=== PATIENT | female | born 1960 | race Caucasian/White ===

== ENCOUNTER 2016-04-14 15:14 | Inpatient (IN) | payer MEDICARE ==
[~2016-04-14] VITALS: Ht 157.5 cm; Wt 75.7 kg
--- NOTE | ~2016-04-14 | HEMODYNAMI ---
PATIENT:ELISABET BRIGHT MEDICAL RECORD: [id number] : 58 LOCATION:[facility] D.2129 ADMISSION DATE: 04/14/16 Generatedon:04/15/201611:43 Patient name: ELISABET BRIGHT Patient #: [id number] SSN: : Date of study: 04/15/2016 Page: Of Hemodynamic Procedure Report Patient Data Patient Demographics Procedure consent was obtained First Name: ELISABET Gender: Female Last Name: KAILA : 1960 [facility] Initial: CAMILLA Age: 55 year(s) Patient #: [id number] Race: Additional ID: [id number] Contact details Address: [address] [place] [address] State: [place] City: [place] Zip code: [address] Past Medical History Allergies Allergen Reaction Date Comments Reported Codeine 07/20/2014 Eggs 07/20/2014 Erythromycin 07/20/2014 Tetracycline 07/20/2014 Other allergy 07/20/2014 TYLENOL, DOXYCYLINE, HYDROCODONE, KEFLEX CJ inhibitors 04/15/2016 Codeine 04/15/2016 Admission Admission Data Admission Date: 04/14/2016 Admission Time: 22:34 Room #: [facility] Insurance Payor: Medicare, Medicaid Height (in.): 62 BSA: 1.75 (m2) Height (cm.): 157.48 BMI: 29.84 (kg/m2) Weight (lbs.): 163.14 Weight (kg.): 74 Medications upon Admission Medications Dosage Times Administered Last Remarks per Delivery Day Date and Time Clopidogrel Yes 04/15/2016 0:00 Lab Results Lab Result Date: 04/15/2016 Lab Result Time: 0:00 Biochemistry Name Units Result Min Max Creatinine mg/dl 1.5 --(----)-* 0.6 1.3 CBC Name Units Result Min Max Hemoglobin g/dl 11.1 *-(----)-- 13.5 17.5 Procedure Procedure Types Cath Procedure Diagnostic Procedure LHC LHC w/Coronaries FFR/IVUS Intra-Coronary IVUS Initial Miscellaneous Procedures Moderate Sedation up to 15 minutes Procedure Description Procedure Date Procedure Date: 04/15/2016 Procedure Start Time: 11:29 Procedure End Time: 11:41 Procedure Staff Name Function Star Trevizo MD Performing Physician Michelle Juarez RT Scrub Radha Grove RN Nurse Marito Mckenzie RT Music Professor Aldo Hope RT Monitor Procedure Data Cath Procedure Fluoroscopy Diagnostic fluoroscopy Total fluoroscopy Time: 1.9 time: 1.9 min min Diagnostic fluoroscopy Total fluoroscopy dose: 354 dose: 354 mGy mGy Contrast Material Contrast Material Type Amount (ml) Isovue 300 70 Entry Location Entry Primary Successful Side Size Upsize Upsize Entry Closure Succes sful Closure Location (Fr) 1 (Fr) 2 (Fr) Remarks Device Remarks Femoral Right 5 Fr 6 Fr Vascade artery Short Closure System Estimated blood loss: 5 ml Diagnostic catheters Device Type Used For End Catheter Placement Cordis 5Fr Pigtail Procedure Catheter (MP) Cordis 5Fr JL 4.0 Procedure Catheter (MP) Cordis 5Fr 3DRC Catheter Procedure (MP) Procedure Complications No complications Procedure Medications Medication Administration Route Dosage Oxygen NC 2 l/min Lidocaine 2% added to field 20 Heparin Flush Bag added to field 2 bags (1000units/500ml NS) 0.9% NaCl I.V. 100 ml/hr Fentanyl I.V. 50 mcg Versed I.V. 1 mg Fentanyl I.V. 50 mcg Versed I.V. 1 mg Fentanyl I.V. 50 mcg Fentanyl I.V. 50 mcg Hemodynamics Rest BSA: 1.75 (m2) HGB: 11.1 (g/dl) O2 Consumption: Estimated: 170.08 (ml/min) O2 Co nsumption indexed: Estimated:97.19 (ml/min/m) Heart Rate: 73 (bpm) Snapshots Pre Cath Intra NCS Post Cath Vital Signs Time Heart Resp SPO2 etCO2 IP5pxfu NIBP Rhythm Pain Sedation Rate (ipm) (%) (mmHg) (mmHg) (mmHg) Status Level (bpm) 11:16:27 74 17 100 0 0 No Cuff NSR 0 (11) 10(A) , No pain 11:20:26 73 18 98 0 0 No Cuff NSR 0 (11) 10(A) , No pain 11:24:08 77 23 97 0 0 113/59(76) NSR 0 (11) 10(A) , No pain 11:28:18 71 10 96 0 0 104/56(76) NSR 0 (11) 10(A) , No pain 11:32:27 71 13 94 0 0 105/54(81) NSR 0 (11) 9(A) , No pain 11:36:38 74 8 94 0 0 105/58(76) NSR 0 (11) 9(A) , No pain 11:40:47 80 10 93 0 0 109/58(86) NSR 0 (11) 9(A) , No pain 11:42:32 77 16 98 0 0 121/60(97) NSR 0 (11) 9(A) , No pain Medications Time Medication Route Dose Verified Delivered Reason Notes Effec tiveness by by 11:23:03 Oxygen NC 2 Star Buffie used for l/min Joseline Grove RN procedure 11:23:18 Lidocaine 2% added 20ml Star Buffie used for to vial Joseline Grove RN procedure field 11:23:27 Heparin Flush added 2 Star Buffie used for Bag to bags Joseline Grove RN procedure (1000units/500ml field NS) 11:23:37 0.9% NaCl I.V. 100 Star Buffie Per ml/hr Joseline Grove RN physician 11:27:10 Fentanyl I.V. 50 Star Buffie for mcg Joseline Grove RN sedation 11:27:17 Versed I.V. 1 mg Star Buffie for Joseline Grove RN sedation 11:29:12 Fentanyl I.V. 50 Star Buffie for mcg Joseline Grove RN sedation 11:29:16 Versed I.V. 1 mg Star Buffie for Joseline Grove RN sedation 11:31:35 Fentanyl I.V. 50 Star Buffie for mcg Joseline Grove RN sedation 11:35:11 Fentanyl I.V. 50 Star Buffie for mcg Joseline Grove RN sedation Procedure Log Time Note 10:50:33 Marito Mckenzie RT(R) sent for patient. Start room use. 11:04:43 Time tracking: Regular hours 11:04:47 Plan of Care:Hemodynamics will remain stable., Cardiac rhythm will remain stable., Comfort level will be maintained., Respiratory function will remain adequate., Patient/ family verbilizes understanding of procedure., Procedure tolerated without complication., Recovers from procedure without complications.. 11:04:53 Patient received from PCU to CCL 1 Alert and oriented. Tansferred to table in Supine position. 11:04:55 Warm blankets applied, and armida hugger turned on for patient comfort. 11:04:55 Correct patient and procedure confirmed by team. 11:04:56 Signed procedure consent form obtained from patient. 11:04:57 ECG and BP/O2 sat monitors applied to patient. 11:04:58 Full Disclosure recording started 11:15:36 Vital chart was started 11:15:40 Rhythm: sinus rhythm 11:16:25 H&P Date Dictated: 04/15/2016 Within 30 days and on chart.. 11:16:27 Pre-procedure instructions explained to patient. 11:16:27 Pre-op teaching completed and patient verbalized understanding. 11:16:29 Family in patients room. 11:16:30 Patient NPO since Midnight. 11:16:52 Patient allergic to CJ inhibitors 11:17:27 Patient allergic to Codeine 11:17:32 Is the patient allergic to Iodine/contrast media? No. 11:17:35 Is the patient allergic to Iodine/contrast media? No. 11:17:39 Is patient on blood thinner?Yes 11:17:41 ACC The patient was administered the following blood thiners within the last 24 hours: ACCPlavix 11:17:46 Patient diabetic? Yes. 11:18:41 Previous problem with sedation/anesthesia? No ? 11:18:43 Snore? Yes 11:18:45 Sleep apnea? Yes 11:18:47 Deviated septum? No 11:18:55 Opens mouth fully? Yes 11:18:56 Sticks out tongue? Yes 11:19:12 Airway obstruction? Yes COPD 11:19:16 Dentures? No ? 11:19:19 Pre procedure: right dorsailis pedis pulse 2+ Normal; easily identifiable; not easily obliterated 11:19:26 Patient pain scale 6/10 Chest. 11:19:33 IV patent on arrival in right forearm with 0.9% NaCl at KVO. 11:19:36 Lab results completed and on chart. 11:19:55 Lab Result : Creatinine 1.5 mg/dl 11:19:55 Lab Result : Hemoglobin 11.1 g/dl 11:20:00 Right groin area was prepped with chlora-prep and draped in sterile fashion 11:20: Alarms reviewed by R. N. 11:20: Sharps counted by scrub and verified by R.N. 11:20:04 Use device set Femoral Dx 11:20:05 Acist Syringe opened to sterile field. 11:20:06 Bag Decanter opened to sterile field. 11:20:06 Cardinal Cath Pack opened to sterile field. 11:20:07 Terumo 5Fr Marty Sheath opened to sterile field. 11:20:07 St Dwayne 260cm J .035 wire opened to sterile field. 11:20:08 Acist Hand Control opened to sterile field. 11:20:09 Acist Manifold opened to sterile field. 11:20:09 Cordis Infinity 5Fr Multipack catheter opened to sterile field. 11:20:10 Tegaderm 4 x 4 opened to sterile field. 11:20:29 If diabetic: On Metformin? No 11:23:03 Oxygen 2 l/min NC was given by Radha Grove RN; used for procedure; 11:23:18 Lidocaine 2% 20ml vial added to field was given by Radha Grove RN; used for procedure; 11:23:27 Heparin Flush Bag (1000units/500ml NS) 2 bags added to field was given by Radha Grove RN; used for procedure; 11:23:37 0.9% NaCl 100 ml/hr I.V. was given by Radha Grove RN; Per physician; 11:24:11 Patient Weight : 163.14 lbs 11:24:17 Patient Height : 62 inches 11:24:26 Insurance Payor : Medicare, Medicaid 11:25:24 ACC Patient presents with Unstable Angina CCS Anginal Class 3--Marked limitation of physical activity, angina occurs with ordinary activity.. 11::41 ACCPatient has been prescribed/administered the following anti-anginal medication within the last 2 weeks: Beta Adonis, Calcium Channel Blockers, Long-Acting Nitrates 11::43 Physician arrived 11::43 --------ALL STOP TIME OUT------ 11::44 Final Timeout: patient, procedure, and site verified with staff and physician. All members of the team are in agreement. 11:26:45 Right groin site verified by team. 11:26:48 Physical assessment completed. ASA score P 2 - A patient with mild systemic disease as per Star Trevizo MD. 11:26:51 Sedation plan: IV Moderate Sedation Versed, Fentanyl 11:27:10 Fentanyl 50 mcg I.V. was given by Radha Grove RN; for sedation; 11:27:13 Baseline sample Acquired. 11::17 Versed 1 mg I.V. was given by Radha Grove RN; for sedation; 11::22 Zero performed for pressure channel P1 11:29:12 Fentanyl 50 mcg I.V. was given by Radha Grove RN; for sedation; 11::16 Versed 1 mg I.V. was given by Radha Grove RN; for sedation; 11:29:38 Procedure started. 11:29:41 Local anesthetic to right femoral artery with Lidocaine 2% by Star Trevizo MD.INITIAL ACCESS ONLY 11:29:47 A 5 Fr sheath was inserted into the Right Femoral artery 11:30:46 A Cordis 5Fr Pigtail Catheter (MP) was advanced over the wire and used for Procedure. 11:31:35 Fentanyl 50 mcg I.V. was given by Radha Grove RN; for sedation; 11:31:55 LV angiography performed. 11:31:56 LV gram done using STEIN 11:32:01 EF : 60 % 11:32:06 Injector settings: Ml/sec: 10, Volume: 20, 11:32:29 Catheter exchanged over wire. 11:32:34 A Cordis 5Fr JL 4.0 Catheter (MP) was advanced over the wire and used for Procedure. 11:32:45 LCA angiography performed. 11:34:50 Catheter removed. 11:34:56 A Cordis 5Fr 3DRC Catheter (MP) was advanced over the wire and used for Procedure. 11:35:00 RCA angiography performed. 11:35:02 Catheter removed. 11:35:10 Terumo 6Fr Marty Sheath opened to sterile field. 11:35:10 [place] Eagleye IVUS Catheter opened to sterile field. 11:35:11 Fentanyl 50 mcg I.V. was given by Radha Grove RN; for sedation; 11:35:11 Merit BasixCompak Inflation Kit opened to sterile field. 11:35:18 [place] Sci Choice PT Extra Support J 300cm .014 gu opened to sterile field. 11:35:28 Sheath upsized to a 6 Fr Short. 11:35:41 Cordis 6FR XBLAD 3.5 guide catheter opened to sterile field. 11:35:48 6 Fr xblad 3.5 guide catheter was inserted over the wire 11:35:53 pt es wire advanced. 11:35:55 Wire advanced across lesion. 11:36:35 IVUS catheter advanced over wire. 11:36:59 IVUS pass to Circ lesion performed. 11:37:45 IVUS catheter removed over wire. 11:37:49 Wire removed. 11:38:14 Guide catheter removed. 11:38:26 Vascade 6/7 Fr Closure Device opened to sterile field. 11:39:45 Sheath removed intact; hemostasis achieved with Vascade Closure System to the Right Femoral artery. 11:39:47 Procedure ended.(Physican Out) 11:39:55 Fluoroscopy time 01.90 minutes. 11:39:59 Fluoroscopy dose: 354 mGy 11:39:59 Flurop Dose total: 354 11:40:03 Contrast amount:Isovue 300 70ml. 11:40:04 Sharps counted by scrub and verified by R.N. 11:40:06 Insertion/operative site no bleeding no hematoma. 11:40:08 Post-op/insertion site Right Femoral artery dressed using a 4 x 4 and Tegaderm. 11:40:12 Post right femoral artery:stable, soft, clean and dry 11:40:13 Post Procedure Pulses reassessed and unchanged 11:40:15 Post-procedure physical assessment completed. ASA score P 2 - A patient with mild systemic disease as per Star Trevizo MD. 11:40:18 Post procedure rhythm: unchanged. 11:40:20 Estimated blood loss: 5 ml 11:40:22 Post procedure instruction explained to patient.Patient verbalizes understanding. 11:40:22 Patient needs reinforcement of post procedure teaching. 11:40:50 Procedure type changed to Cath procedure, Diagnostic procedure, LHC, C w/Coronaries, FFR/IVUS, Intra-Coronary IVUS Initial, Miscellaneous Procedures, Moderate Sedation up to 15 minutes 11:41:19 Procedure and supply charges have been captured, reviewed, submitted and are correct. 11:41:19 Procedure and supply charges have been captured, reviewed, submitted and are correct. 11:41:21 Procedure Complication : No complications 11:41:23 Vital chart was stopped 11:41:26 See physician's report for complete and final results. 11:41:29 Report given to PCU. 11:41:32 Patient transfered to PCU with Stretcher. 11:41:34 Procedure ended. 11:41:34 Full Disclosure recording stopped 11:43:26 ACC-PCI Only Patient was given prescriptions, or instructed by Star Trevizo MD to start/continue the following medications upon discharge: Plavix 11:43:28 End room use (Document Last) Device Usage Item Name Manufacture Quantity Catalog Number Hospital Part Current Minim al Lot# / Charge Number Stock Stock Serial# Code Acist Acist 1 [id number] 328251 966555 448954 20 Syringe Medical Systems Inc Bag Microtek 1 2002S 986564 54840 978364 5 Decanter Medical Inc. Cardinal Cardinal 1 [id number] 683834 80360 282618 5 Cath Pack Health Terumo 5Fr Terumo 1 [id number] 718947 570466 911182 [address] St Dwayne 1 321431 374654 331186 428837 30 260cm J .035 wire Acist Hand Acist 1 93886 844935 635404 997668 5 Control Medical Systems Inc Acist Acist 1 57274 186157 353987 440603 5 Manifold Medical Systems Inc Cordis Cardinal 1 [id number] 463241 81941 497893 30 Infinity Health 5Fr Multipack catheter Tegaderm 4 3M 1 1626W 323742 423550 717843 5 x 4 Cordis 5Fr Cardinal 1 904425 5 Pigtail Health Catheter (MP) Cordis 5Fr Cardinal 1 387687 5 JL 4.0 Health Catheter (MP) Cordis 5Fr Cardinal 1 779615 5 3DRC Health Catheter (MP) Terumo 6Fr Terumo 1 JSP265 665839 077908 528286 40 Marty Sheath [place] 1 38210P 171173 198025 296716 8 [employer] [place] [employer] [place] Eagley[place] IVUS Catheter Merit Merit 1 PW1046 286898 580075 793418 15 Maxcyte Medical Inflation Kit Salem Sci Salem 1 [id number] 152192 165537 173399 5 Choice PT Scientific Extra Support J 300cm .014 gu Cordis 6FR Cardinal 1 [id number] 704221 596199 174363 10 XBLAD 3.5 Health guide catheter Vascade 08/12 Cardiva 1 [id number] 298982 491803 804899 5 Fr Closure Medical, Device Inc. Signature Audit [place] Stage Time Signature Unsigned Intra-Procedure 04/15/2016 Aldo Hope 11:43:40 AM RT(R) Signatures Monitor : Aldo Hope RT Signature : Date : Time : [id number] [place] [address]
[~2016-04-14 15:14] MED LIST: ADVAIR 250/501 DISK INH; ALBUTEROL2.5 MG/0.5 UPD; AMOXICILLIN500 M1 PO; ATIVAN1 MG PO; BACLOFEN20 M1 PO; BAYER CHEWABLE81 MG PO; COREG25 MG; COREG25 MG PO; EFFIENT10 MG PO; GABAPENTIN100 MG PO; GLIPIZIDE10 MG PO; GLUCOPHAGE1000 MG PO; GLUCOPHAGE500 MG PO; HUMULIN R100 U/ML SC; HYDROCHLOROTH12.5 M1 PO; IMDUR60 MG PO; IPRAT-ALBUT 0.5-3 ML UPD; JANUVIA100 MG PO; K-DUR20 MEQ PO; KLOR-CON M2020 MEQ PO; LANTUS INSULIN10 ML SC; LANTUS SOL100 UNIT/1; LASIX40 MG PO; LIPITOR40 MG PO; NEURONTIN 300300 MG PO; NORVASC5 MG PO; PHENERGAN25 M1 PO; PLAVIX75 MG PO; PROTONIX40 MG PO; PROVENTIL HFA6.7 GM INH; PROVENTIL/2.5 MG/3 M; TRAZODONE HCL150 MG PO; VENTOLIN HFA18 GM
[2016-04-14 16:33] LABS: BASOPHILS 0.3 % (0.0-2.0); EOSINOPHILS 2.6 % (0-7); HEMATOCRIT 34.9 % (36.0-48.0); HEMOGLOBIN 11.3 g/dL (12-16); IMMATURE GRANULOCYTES 0.3 % (0-5); LYMPHOCYTES 23.6 % (15-50); MCH 29.7 pg (26.0-34.0); MCHC 32.4 g/dL (31.0-37.0); MCV 91.8 fL (80.0-100.0); MEAN PLATELET VOLUME 10.2 fL (7.4-10.4); MONOCYTES 8.6 % (2-11); NEUTROPHILS 64.6 % (40-80); PLATELET COUNT 262 10x3/uL (130-400); RDW 13.1 % (11.5-14.5); WBC 12.2 10x3/uL (4.8-10.8)
[2016-04-14 17:26] LABS: ALBUMIN 4.3 g/dL (3.4-5.0); ALKALINE PHOSPHATASE 98 U/L (46-116); ALT (SGPT) 26 U/L (10-68); BILIRUBIN - TOTAL 0.19 mg/dL (0.2-1.3); CALC OSMOLALITY 294 mosm/kg (275-300); CALCIUM 9.2 mg/dL (8.5-10.1); CARBON DIOXIDE 29.7 mmol/L (21.0-32.0); CHLORIDE - SERUM 100 mmol/L (98-107); CREATININE - SERUM 2.2 mg/dL (0.6-1.3); GLUCOSE 236 mg/dL (74-106); POTASSIUM - SERUM 4.2 mmol/L (3.5-5.1); PROTEIN - SERUM 7.5 g/dL (6.4-8.2); SODIUM 140 mmol/L (136-145); UREA NITROGEN 36 mg/dL (7-18); eGFR NON AFRICAN AMERICAN 24 mL/min (90-120)
[2016-04-14 17:38] LABS: CKMB 0.6 U/L (0.0-3.6); CREATINE KINASE 73 UL (21-215); PRO BNP 42 pg/mL (0-125); TROPONIN-I < 0.017 ng/mL (0.000-0.060)
[2016-04-14 22:26] LABS: APPEARANCE CLEAR (CLEAR); BILIRUBIN NEGATIVE (NEGATIVE); COLOR YELLOW (YELLOW); GLUCOSE NEGATIVE (NEGATIVE); KETONE NEGATIVE (NEGATIVE); LEUKOCYTE ESTERASE NEGATIVE (NEGATIVE); NITRITE NEGATIVE (NEGATIVE); PROTEIN NEGATIVE (NEGATIVE); UROBILINOGEN NORMAL (NORMAL)
--- NOTE | 2016-04-15 00:22 | NUR ---
RECEIVED TO ROOM 2128 ALERT AND ORIENTED X3 55 Y/O FEMALE UNDER DR EDWIGE TRIANA CARE FOR CHEST PAIN VIA W/C FROM ER. ORIENTATION TO UNIT, ROOM , BED, TV,PHONE, C/L IN REACH. NPO PER ORDERS. TELEMETRY PLACED, SHOWING HR SR PER FACULTY RESEARCH ASSISTANT. UP AD KIMI W/O DIFF. CONTINUE TO MONITOR. WILL PLACE ON O2 VIA NC AT 2L PER ORDERS.
[2016-04-15 01:22] VITALS: BP 133/55
[2016-04-15 02:38] VITALS: BP 113/58; BMI 29.7
--- NOTE | 2016-04-15 03:42 | NUR ---
QUIET IN BED, RESP UNLAB, EYES CLOSED, HOB UP SR UP X2, C/L IN REACH.
[2016-04-15 06:27] VITALS: BP 110/38
--- NOTE | 2016-04-15 07:40 | NUR ---
ASSESSMENT DONE. PT A/O. SITTING UP IN BED WATCHING TV. C/O HIGH. ABD DISTENED AND TINDER AT BOTH LOWER QUADS. STATES SHE HAS HAD A BM THIS AM. PT NPO AND WAITNG FOR DR. LIRA TO EVALUATE. PT DENIES CP OR SOB. CALL LIGHT WITH IN REACH. WILL CONT. TO MONITOR.
[2016-04-15 08:00] VITALS: BP 109/39
--- NOTE | 2016-04-15 08:25 | NUR ---
IV PATENT. CALL LIGHT IN REACH. NO NEEDS VOICED. WILL MONITOR.
[2016-04-15 09:25] LABS: ANION GAP 10.1 mmol/L (8-16); CALCIUM 8.6 mg/dL (8.5-10.1); CARBON DIOXIDE 30.8 mmol/L (21.0-32.0); POTASSIUM - SERUM 3.9 mmol/L (3.5-5.1)
[2016-04-15 09:27] LABS: CREATININE - SERUM 1.5 mg/dL (0.6-1.3)
--- NOTE | 2016-04-15 09:29 | NUR ---
FAMILY IN ROOM. CONSENTS SIGNED FOR HEART CATH.
[2016-04-15 09:31] LABS: BASOPHILS 0.2 % (0.0-2.0); EOSINOPHILS 2.9 % (0-7); HEMATOCRIT 34.7 % (36.0-48.0); HEMOGLOBIN 11.1 g/dL (12-16); IMMATURE GRANULOCYTES 0.3 % (0-5); LYMPHOCYTES 20.2 % (15-50); MCH 29.3 pg (26.0-34.0); MCV 91.6 fL (80.0-100.0); MEAN PLATELET VOLUME 10.4 fL (7.4-10.4); MONOCYTES 6.8 % (2-11); NEUTROPHILS 69.6 % (40-80); PLATELET COUNT 244 10x3/uL (130-400); RBC 3.79 10x6/uL (4.00-5.40); RDW 13.2 % (11.5-14.5); WBC 10.9 10x3/uL (4.8-10.8)
--- NOTE | 2016-04-15 11:01 | NUR ---
PT TO FRONT DESK ASSOCIATE VIA BED. NO FAMILY PRESENT. PRE-OP MEDS GIVEN.
--- NOTE | 2016-04-15 12:03 | NUR ---
PT BACK FROM SURGICAL SCHEDULER. A/O. REQUEST WATER AND HER PHONE. DRESSING TO RIGHT GROIN CLEAN, DRY AND INTACT. NO S/S OF BLEEDING AND HEMATOMA. EDUCATED PT ON LAYING FLAT AND NOT BENDING LEG. CALL LIGHT PLACED WITH IN REACH. WILL CONT. TO MONITOR.
[2016-04-15 12:18] VITALS: Ht 157.5 cm; Wt 75.7 kg
--- NOTE | 2016-04-15 13:17 | NUR ---
PT SLEEPING. EASILY AWAKEN. DRESSING TO RT GROIN REMAINS CLEAN DRY AND INTACT. NO S/S OF BLEEDING OR HEMATOMA. PT C/O FLUSHING. TEMP IN ROOM TURNED DOWN. AND PT GIVEN A COLD WASH CLOTH. CALL LIGHT WITH IN REACH. WILL CONT. TO MONITOR.
--- NOTE | 2016-04-15 14:38 | NUR ---
ASSISTED PT TO RESTROOM. PT C/O DIZZINESS FROM MEDS GIVEN DURING ANGIOGRAM. DRESSING TO RIGHT GROIN INTACT. NO S/S OF BLEEDING OR HEMATOMA. PEDAL PULSE PRESENT. WILL CONT. TO MONITOR.
[2016-04-15 16:00] VITALS: BP 123/69
--- NOTE | 2016-04-15 16:01 | NUR ---
PT SITTING UP IN BED WATCHING TV. A/O. NO DISTRESS NOTED. DRESSING TO RIGHT GROIN INTACT. NO S/S OF BLEEDING OR HEMATOMA. CALL LIGHT WITH IN REACH. WILL CONT. TO MONITOR.
--- NOTE | 2016-04-15 16:06 | NUR ---
SCD'S ON ANNEMARIE LE
--- NOTE | 2016-04-15 16:16 | NUR ---
HAT TAKEN INTO PT'S ROOM TO MONITOR I&O'S AND SCD'S PLACED ON PT.
[2016-04-15 20:02] VITALS: BP 109/35
--- NOTE | 2016-04-15 21:03 | NUR ---
HS MEDS GIVEN, BS 122, NO COVERAGE PER S/S. ATIVAN GIVEN AT PT REQUEST TO ASSIST WITH SLEEP. NO OTHER NEEDS AT THIS TIME, BED LOW, CL IN REACH.
--- NOTE | 2016-04-16 01:05 | NUR ---
RESTING WITH EYES CLOSED, RESPERATIONS EVEN, NO S/S DISTRESS NOTED.
[2016-04-16 04:36] VITALS: BP 108/46
[2016-04-16 05:23] LABS: BASOPHILS 0.1 % (0.0-2.0); EOSINOPHILS 3.8 % (0-7); HEMATOCRIT 32.5 % (36.0-48.0); HEMOGLOBIN 10.2 g/dL (12-16); IMMATURE GRANULOCYTES 0.2 % (0-5); LYMPHOCYTES 24.9 % (15-50); MCH 29.3 pg (26.0-34.0); MCHC 31.4 g/dL (31.0-37.0); MCV 93.4 fL (80.0-100.0); MEAN PLATELET VOLUME 10.4 fL (7.4-10.4); MONOCYTES 10.7 % (2-11); NEUTROPHILS 60.3 % (40-80); PLATELET COUNT 230 10x3/uL (130-400); RBC 3.48 10x6/uL (4.00-5.40); RDW 13.2 % (11.5-14.5); WBC 8.2 10x3/uL (4.8-10.8)
[2016-04-16 05:34] LABS: CALCIUM 8.4 mg/dL (8.5-10.1); CARBON DIOXIDE 26.7 mmol/L (21.0-32.0); CREATININE - SERUM 1.4 mg/dL (0.6-1.3); POTASSIUM - SERUM 3.7 mmol/L (3.5-5.1)
--- NOTE | 2016-04-16 07:54 | NUR ---
ASSESSMENT DONE. PT LAYING IN BED WITH HOB ELEVATED. A/O TALKING ON THE PHONE. DRESSING TO RIGHT GROIN WNL. STATES SITE IS TENDER TO TOUCH. NO BLEEDING OR S/S OF HEMATOMA NOTED. PT STATES SHE ATTEMPTED TO HAVE A BM, BUT FELT PRESSURE AT THE CATH SITE AND WAS AFRAID SHE MIGHT START BLEEDING, AND REFRAINED FROM GOING. DISCUSSED USED OF STOOL SOFTNERS. LUNGS SOUNDS DIMINISHED. PT STATES SHE JUST STARTED COUGHING, BUT ISN'T COUGHING UP ANYTHING. PT NEEDS TO AMBULATE. CALL LIGHT WITH IN REACH. WILL CONT. TO MONITOR.
[2016-04-16 08:00] VITALS: BP 90/55
[2016-04-16 09:08] LABS: BILIRUBIN - DIRECT 0.07 mg/dL (0.00-0.30); BILIRUBIN - INDIRECT 0.22 mg/dL (0.00-1.00); BILIRUBIN - TOTAL 0.29 mg/dL (0.2-1.3); PROTEIN - SERUM 6.4 g/dL (6.4-8.2)
[2016-04-16 09:10] LABS: ALBUMIN 3.2 g/dL (3.4-5.0)
--- NOTE | 2016-04-16 10:24 | NUR ---
RESP UL ON . IVPATENT. CALL LIGHT IN REACH. WILL CONT. PLAN OF CARE.
--- NOTE | 2016-04-16 11:07 | NUR ---
Patient Name: ELISABET BRIGHT Admission Status: ER Accout number: [id number] Admission Date: 04-15-2016 : 1960 Admission Diagnosis: Attending: PERFECTO Current LOS: 1 Anticipated DC Date: Planned Disposition: Home Primary Insurance: MEDICARE A & B Discharge Planning Comments: * Is the patient Alert and Oriented? Yes 0 * How many steps to enter\exit or inside your home? 10-12 0 * PCP MICHELLE MACHADO 0 * Pharmacy [facility] IN [place] 0 * Preadmission Environment Home Alone 0 * ADLs Independent 0 * Equipment Bedside Commode Glucometer Nebulizer Other Oxygen Wheelchair 0 * Other Equipment BLOOD PRESSURE MONITOR OXYGEN AT NIGHT [facility] - MEDICAL EQUIPMENT PROVIDER 0 * List name and contact numbers for known caregivers / representatives who currently or will assist patient after discharge: SHLOMO CARVAJAL, ARIEL, 0 * Community resources currently utilized None 0 * Please name any agencies selected above. NONE 0 * Additional services required to return to the preadmission environment? No 0 * Can the patient safely return to the preadmission environment? Yes 0 * Has this patient been hospitalized within the prior 30 days at any hospital? No 0 CM MET WITH PT IN ROOM TO DISCUSS DISCHARGE PLANNING AND NEEDS. PT REPORTS LIVING AT HOME INDEPENDENTLY AND ALONE. PT REPORTS HAVING ALL NEEDED MEDICAL EQUIPMENT, RADHA IS HER PROVIDER; PT IS USING A BEDSIDE COMMODE A SHOWER CHAIR. PT HAS NO OUTSIDE SERVICES ASSISTING IN THE HOME. CM DISCUSSED AVAILABILITY OF HOME HEALTH, REHAB SERVICES AND MEDICAL EQUIPMENT. PT DENIES DISCHARGE NEEDS AT THIS TIME BUT WILL CONSIDER HOME HEALTH IF IT IS NEEDED; PT REPORTS HER SON WILL PICK HER UP FOR DISCHARGE HOME. PT PLANS TO DISCHARGE HOME ALONE, DENIES DISCHARGE NEEDS, WILL CONSIDER HOME HEALTH IF THERE IS A NEED. CM TO FOLLOW AND ASSIST IF NEEDED. Mortgage Closing Clerk: Alirio Olivia
--- NOTE | 2016-04-16 11:07 | NUR ---
PT SLEEPING. APPEARS COMFORTABLE. RESP EVEN AND UNLABORED. CALL LIGHT WITH IN REACH. WILL CONT. TO MONITOR.
[2016-04-16 12:00] VITALS: BP 130/71
--- NOTE | 2016-04-16 12:04 | NUR ---
Patient Name: ELISABET BRIGHT Encounter No: [id number] : 1960 Primary Insurance: MEDICARE A & B Anticipated DC Date: 04-16-2016 Planned Disposition: Home WITH HOME HEALTH External Planned Provider: [facility] DCP follow-up note: CM MET WITH PT IN ROOM AFTER RECEIVING DISCHARGE ORDER TO DISCUSS HOME HEALTH AND DISCHARGE NEEDS. PT HAS THOUGHT ABOUT IT AND WOULD LIKE HOME HEALTH NURSE TO ENSURE THAT SHE IS OK; PT REPORTS BEING FORGETFUL AT TIMES AND WOULD LIKE ASSISTANCE WITH MEDICATIONS AND DIET. PT CHOSE [facility] SHE SEE'S THEIR CARS AT HER APARTMENT COMPLEX ALL THE TIME. CHOICE SIGNED. PT DENIES FURTHER NEEDS, FAMILY TO PICK HER UP TODAY. CM CALLED [facility], , SPOKE TO DELFINA WHO TOOK REFERRAL INFORMATION FOR HOME HEALTH FOLLOW UP. CM FAXED REFERRAL TO [facility] AT [phone]. PT NOTIFIED, DENIES FURTHER NEEDS. Alirio Olivia, CASE MANAGEMENT
--- NOTE | 2016-04-16 12:29 | NUR ---
DISCHARGE INSTRUCTIONS GIVEN TO PT. UNDERSTANDING VERBALIZED. IV AND TELEMETRY REMOVED. PT TO D/C HOME THEN [facility] TO FOLLOW UP WITH PT. PT'S FAMILY HERE TO TAKE HOME VIA PRIVATE VEHICLE.
--- NOTE | 2016-04-16 12:53 | NUR ---
PT D/C HOME VIA PRIVATE VEHICLE WITH SON AND DAUGHTER. TAKEN OUT BY W/C
--- NOTE | 2016-04-16 13:59 | OP ---
PATIENT NAME: ELISABET BRIGHT MEDICAL RECORD: [id number] :[birth year] LOCATION:D.M2 D.2129 ADMISSION DATE:04/15/16 SURGEON: MORIAH LIRA MD DATE OF OPERATION: 04/15/2016 PROCEDURES: 1. Left heart catheterization. 2. Selective coronary angiography. 3. Left ventriculogram. 4. Intravascular ultrasound of left circumflex. PROCEDURE IN DETAIL: After informed consent was obtained and after a detailed explanation of the risks, benefits as well as alternative therapies, the patient elected to proceed with angiogram and heart catheterization. The right femoral area was prepped and draped in normal sterile fashion. Right femoral artery was cannulated via modified Seldinger technique with placement of 6-Greenlandic sheath. All catheters exchanged through this sheath. FINDINGS: The left ventriculogram was performed in standard 30-degree STEIN view, reveals good cardiac wall motion throughout all segments. Overall ejection fraction estimated 60%. SELECTIVE CORONARY ANGIOGRAPHY: 1. Left main showed no significant angiographic disease. 2. Left anterior descending has previously placed stents in the LAD and LAD diagonal is widely patent with no significant restenosis. No disease elsewise throughout the LAD or its branches. 3. Left circumflex has previously placed stent in the mid vessel. This was a questionable stenosis at the ostium. However, intravascular ultrasound revealed there is no significant disease. There, it is just an angulated segment. 4. Right coronary has moderate irregularities, but no flow-limiting stenosis. OVERALL IMPRESSION: No new coronary artery disease is present, wide patency of the previously placed stents. Continue medical management of the coronary artery disease and chronic stable angina. TRANSINT:[id number] Voice Confirmation ID: [id number] DOCUMENT ID: [id number] MORIAH LIRA MD at 1359 CC: [id number] DICTATION DATE: 04/15/16 1143 PRECISION DYER: 04/15/16 1203 DIS IN 04/16/16 [id number] [place] [address]
--- NOTE | 2016-04-16 13:59 | DS ---
PATIENT:ELISABET BRIGHT :[birth year] MEDICAL RECORD: [id number] DISCHARGE SUMMARY ADMISSION DATE: 04/15/16 DISCHARGE DATE: 04/16/16 DISCHARGE DIAGNOSES: 1. Angina. 2. Coronary artery disease. 3. Hypertension. 4. Hyperlipidemia. HOSPITAL COURSE: Mrs. Bright presents with anginal symptomatology, found to have no new coronary artery disease, no restenosis of the previously placed stents. She is discharged home with no change in her medications as she is already on a beta-johnny and Imdur and a calcium channel johnny. We will follow up with [facility] in 1 month. TRANSINT:[id number] Voice Confirmation ID: [id number] DOCUMENT ID: [id number] MORIAH LIRA MD at 1359 CC: [id number] DICTATION DATE: 04/15/16 1141 MUSIC INDUSTRY INTERNSHIP: 04/15/16 1258 DIS IN 04/16/16 [address] [place] [address]
--- NOTE | 2016-04-16 13:59 | CN ---
PATIENT NAME:ELISABET BRIGHT MEDICAL RECORD: [id number] : 58 LOCATION:D.M2 D.2129 ADMIT DATE: 04/15/16 ACCOUNT: [id number] CONSULTING PHYSICIAN: MORIAH LIRA MD REFERRING PHYSICIAN: MICHELLE TRIANA MD DATE OF CONSULTATION: 04/15/2016 Cardiology Consultation REFERRING PHYSICIAN: Michelle Triana MD. REASON FOR CONSULTATION: Angina. HISTORY OF PRESENT ILLNESS: This is a 55-year-old female well known to our practice with noted coronary artery disease. Her last percutaneous intervention was back in 2013 when she underwent stenting to her LAD and circ. She has had numerous left heart cath since that time, last being in September of 2015, which showed widely patent coronary vessels. Her other comorbid conditions include diabetes mellitus type 2, insulin-dependent, CVA, hypotension, hyperlipidemia, some renal insufficiency and some cardiomyopathy with a documented EF of 40% to 45%. The patient was seen and evaluated in the cardiovascular clinic on yesterday and advised to go to the Emergency Department due to her shortness of breath and what appeared to be a large volume ascites. However, the patient's CT scan just showed hepatomegaly with fatty infiltrate of the liver. The patient's 12-lead EKG shows normal sinus rhythm, rate of 68 with a nonspecific inferior ventricular block and a T-wave abnormality consistent with an inferolateral ischemia. Her serial troponins are negative today. Due to worsening symptomatology, we will proceed with a diagnostic heart catheterization. REVIEW OF SYSTEMS: As per HPI. ALLERGIES: Numerous. See MAR. MEDICATIONS: 1. ProAir inhaler. 2. Plavix 75 daily. 3. Lipitor 40 q.h.s. 4. Carvedilol 25 mg b.i.d. 5. Isosorbide 60 mg b.i.d. 6. Amlodipine 5 mg daily. 7. Aspirin 81 mg daily. 8. Gabapentin b.i.d. 9. Furosemide 40 daily. 10. Potassium 20 b.i.d. 11. Protonix 40 daily. 12. A 90 units of Lantus subQ q.a.m. 13. Regular insulin sliding scale. 14. Januvia 100 mg daily. PHYSICAL EXAMINATION: GENERAL SURVEY: Reveals a well-developed, well-nourished female, who has normal vital signs. She does complain of chest pain, graded at a 6/10 on the pain scale. HEENT: Head is normocephalic. Pupils are equal and reactive to light and CONSULT REPORT [id number] KAILA,ELISABET SAMPSON accommodation. Extraocular muscles are intact. The mucous membranes are pink and moist. NECK: Supple. Trachea is midline. There is no JVD or carotid bruits. CARDIOVASCULAR: Reveals a regular rate and rhythm without murmur, gallop, or rub. LUNGS: Clear and diminished bilaterally. ABDOMEN: Distended, soft, nontender. Bowel sounds are positive. EXTREMITIES: She has no clubbing, cyanosis or edema. NEUROLOGIC: Cranial nerves II-XII are grossly intact. LABORATORY DATA: Have been reviewed. ASSESSMENT AND PLAN: 1. Angina in a patient with known coronary artery disease. We will proceed with a left heart catheterization. 2. Renal insufficiency. The patient's baseline renal function is around 1.5-1.8. She was at 2.2 this morning. We will give aggressive IV fluids prior to the left heart catheterization. 3. Diabetes mellitus, insulin-dependent. Continue her insulin sliding scale. 4. Hypotension. 5. Cardiomyopathy. She has no evidence of fluid volume overload. 6. Chronic obstructive pulmonary disease. RECOMMENDATIONS: In light of the patient's acute coronary syndrome, we will proceed with a diagnostic angiography to evaluate for in-stent restenosis. Further recommendations to follow. TRANSINT:[id number] Voice Confirmation ID: [id number] DOCUMENT ID: [id number] Dictated By: MADYSON SOTELO I have interviewed/examined the above patient and agree with these documented findings. MORIAH LIRA MD at 1359 at 0948 CC: [id number] DICTATION DATE: 04/15/16 0858 DRY PAN FEEDER: 04/15/16 1011 DIS IN 04/16/16 [id number] [place] [address]
== END 2016-04-16 12:45 | disposition home health service (06) | DRG 287 ==
LOC: D.ER 15:14 → D.M2 22:34 → OBSVTIME 22:34 → D.M2 22:34
PROVIDERS: Emergency Medicine; Internal Medicine Interventional Cardiology; ADMIT Emergency Medicine
PROC: B2151ZZ Fluoroscopy of Left Heart using Low Osmolar Contrast (ICD-10-PCS; 2016-04-15)
PROC: 4A023N7 Measurement of Cardiac Sampling and Pressure, Left Heart, Percutaneous Approach (ICD-10-PCS; 2016-04-15)
PROC: B240ZZ3 Ultrasonography of Single Coronary Artery, Intravascular (ICD-10-PCS; 2016-04-15)
PROC: B2111ZZ Fluoroscopy of Multiple Coronary Arteries using Low Osmolar Contrast (ICD-10-PCS; principal; 2016-04-15 10:30)
DX: I25.119 Atherosclerotic heart disease of native coronary artery with unspecified angina pectoris (principal); N17.9 Acute kidney failure, unspecified; I50.22 Chronic systolic (congestive) heart failure; E78.5 Hyperlipidemia, unspecified; E11.9 Type 2 diabetes mellitus without complications; Z79.4 Long term (current) use of insulin; I95.9 Hypotension, unspecified; I42.9 Cardiomyopathy, unspecified; J44.9 Chronic obstructive pulmonary disease, unspecified; R16.0 Hepatomegaly, not elsewhere classified; I11.0 Hypertensive heart disease with heart failure; D64.9 Anemia, unspecified; I73.9 Peripheral vascular disease, unspecified; Z95.5 Presence of coronary angioplasty implant and graft; Z86.73 Personal history of transient ischemic attack (TIA), and cerebral infarction without residual deficits; Z87.891 Personal history of nicotine dependence

== ENCOUNTER 2016-12-18 09:13 | Outpatient (CLI) | payer MEDICARE ==
--- NOTE | ~2016-12-18 | HEMODYNAMI ---
PATIENT:ELISABET BRIGHT MEDICAL RECORD: [id number] : 58 LOCATION:D.CAT ADMISSION DATE: 12/18/16 Generatedon:12/18/201615:06 Patient name: ELISABET BRIGHT Patient #: [id number] SSN: : Date of study: 12/18/2016 Page: Of Hemodynamic Procedure Report Patient Data Patient Demographics Procedure consent was obtained First Name: ELISABET Gender: Female Last Name: KAILA : 1960 [facility] Initial: CAMILLA Age: 56 year(s) Patient #: [id number] Race: Additional ID: [id number] Contact details Address: [address] [place] [address] State: [place] City: [place] Zip code: [address] Past Medical History Allergies Allergen Reaction Date Comments Reported Codeine 07/20/2014 Eggs 07/20/2014 Erythromycin 07/20/2014 Tetracycline 07/20/2014 Other allergy 07/20/2014 TYLENOL, DOXYCYLINE, HYDROCODONE, KEFLEX CJ inhibitors 04/15/2016 Codeine 04/15/2016 Admission Admission Data Admission Date: 12/18/2016 Admission Time: 9:13 Procedure Procedure Types Cath Procedure Diagnostic Procedure LHC LHC w/Coronaries Miscellaneous Procedures Moderate Sedation up to 15 minutes Procedure Description Procedure Date Procedure Date: 12/18/2016 Procedure Start Time: 14:55 Procedure End Time: 15:03 Procedure Staff Name Function Star Trevizo MD Performing Physician Michelle Juarez RT Scrub Sandra Looney RT Monitor Michele Rivera RN Nurse Procedure Data Cath Procedure Fluoroscopy Diagnostic fluoroscopy Total fluoroscopy Time: 0.7 time: 0.7 min min Diagnostic fluoroscopy Total fluoroscopy dose: 117 dose: 117 mGy mGy Contrast Material Contrast Material Type Amount (ml) Isovue 300 58 Entry Location Entry Primary Successful Side Size Upsize Upsize Entry Closure Succes sful Closure Location (Fr) 1 (Fr) 2 (Fr) Remarks Device Remarks Femoral Right 5 Fr Exoseal artery Estimated blood loss: 10 ml Diagnostic catheters Device Type Used For End Catheter Placement Cordis 5Fr Pigtail Procedure Catheter (MP) Cordis 5Fr JL 4.0 Procedure Catheter (MP) Cordis 5Fr 3DRC Catheter Procedure (MP) Procedure Complications No complications Procedure Medications Medication Administration Route Dosage Oxygen NC 2 l/min Heparin Flush Bag added to field 2 bags (1000units/500ml NS) 0.9% NaCl I.V. 100 ml/hr Fentanyl I.V. 50 mcg Versed I.V. 1 mg Fentanyl I.V. 50 mcg Versed I.V. 1 mg Fentanyl I.V. 50 mcg Versed I.V. 1 mg Hemodynamics Rest Heart Rate: 88 (bpm) Snapshots Pre Cath Intra NCS Post Cath Vital Signs Time Heart Resp SPO2 etCO2 NIBP Rhythm Pain Sedation Rate (ipm) (%) (mmHg) (mmHg) Status Level (bpm) 14:24:20 98 18 95 0 121/77(94) NSR 0 (11) 10(A) , No pain 14:28:32 99 17 95 0 114/78(94) NSR 0 (11) 10(A) , No pain 14:32:40 100 17 88 0 108/69(87) NSR 0 (11) 10(A) , No pain 14:36:46 100 17 96 0 99/64(84) NSR 0 (11) 10(A) , No pain 14:40:52 97 17 95 0 95/59(76) NSR 0 (11) 10(A) , No pain 14:44:59 98 16 97 0 95/51(77) NSR 0 (11) 10(A) , No pain 14:49:11 100 18 98 0 97/47(67) NSR 0 (11) 10(A) , No pain 14:53:23 98 18 97 0 88/47(70) NSR 0 (11) 10(A) , No pain 14:57:33 98 19 94 0 81/46(62) NSR 0 (11) 10(A) , No pain 15:01:41 101 16 96 0 81/49(76) NSR 0 (11) 9(A) , No pain 15:04:51 97 17 94 0 77/48(71) NSR 0 (11) 9(A) , No pain Medications Time Medication Route Dose Verified Delivered Reason Notes Effec tiveness by by 14:56:19 Oxygen NC 2 Star Maloney Per l/min Joseline Rivera RN physician 14:56:28 Heparin Flush added 2 Star Michele used for Bag to bags Joseline Rivera rim roller setter (1000units/500ml field NS) 14:56:38 0.9% NaCl I.V. 100 Star Maloney Per ml/hr Joseline Rivera RN physician 14:56:48 Fentanyl I.V. 50 Star Michele for mcg Joseline Rivera RN sedation 14:56:55 Versed I.V. 1 mg Star Michele for Joseline Rivera RN sedation 14:58:48 Fentanyl I.V. 50 Star Michele for mcg Joseline Rivera RN sedation 14:58:51 Versed I.V. 1 mg Star Michele for Joseline Rivera RN sedation 14:59:31 Fentanyl I.V. 50 Star Michele for aida Rivera RN sedation 14:59:34 Versed I.V. 1 mg Star Maloney for Joseline Rivera RN sedation Procedure Log Time Note 14:05:30 Michelle Juarez RT(R) sent for patient. Start room use. 14:10:28 Diagnostic Cath status Elective 14:10:31 Time tracking: Regular hours 14:10:38 Plan of Care:Hemodynamics will remain stable., Cardiac rhythm will remain stable., Comfort level will be maintained., Respiratory function will remain adequate., Patient/ family verbilizes understanding of procedure., Procedure tolerated without complication., Recovers from procedure without complications.. 14:23:12 Patient received from Pre/Post Procedure Room to CCL 3 Alert and oriented. Tansferred to table in Supine position. 14:23:14 Warm blankets applied, and armida hugger turned on for patient comfort. 14:23:14 Correct patient and procedure confirmed by team. 14:23:16 Signed procedure consent form obtained from patient. 14:23:17 ECG and BP/O2 sat monitors applied to patient. 14:23:20 Vital chart was started 14:23:21 Baseline sample Acquired. 14:23:26 Rhythm: sinus rhythm 14:23:27 Full Disclosure recording started 14:23:37 H&P Date Dictated: 12/15/2016 Within 30 days and on chart., H&P Addendum completed by physician on day of procedure. (MUST COMPLETE FOR ALL OUTPATIENTS). 14:23:38 Pre-procedure instructions explained to patient. 14:23:39 Pre-op teaching completed and patient verbalized understanding. 14:23:40 Family in waiting room. 14:23:41 Patient NPO since Midnight. 14:28:59 Is the patient allergic to Iodine/contrast media? No. 14:29:01 Is patient on blood thinner?Yes 14:29:04 ACC The patient was administered the following blood thiners within the last 24 hours: ACCAspirin 14:32:01 Snore? Yes 14:32:02 Sleep apnea? Yes 14:32:22 Airway obstruction? N/A chronic broncitis 14:32:26 Dentures? No ? 14:32:35 IV patent on arrival in left hand with 0.9% NaCl at [facility]. 14:32:45 Lab results completed and on chart. 14:32:50 Right groin area was prepped with chlora-prep and draped in sterile fashion 14:32:50 Alarms reviewed by R. N. 14:32:51 Sharps counted by scrub and verified by R.N. 14:32:52 Physician paged 14:34:06 Use device set Femoral Dx 14:34:07 Acist Syringe opened to sterile field. 14:34:07 Bag Decanter opened to sterile field. 14:34:08 Medline Cath Pack opened to sterile field. 14:34:08 Terumo 5Fr [place] Sheath opened to sterile field. 14:34:09 St Dwayne 260cm J .035 wire opened to sterile field. 14:34:10 Acist Hand Control opened to sterile field. 14:34:11 Acist Manifold opened to sterile field. 14:34:12 Diagnostic Infinity 5Fr Multipack catheter opened to sterile field. 14:34:12 Tegaderm 4 x 4 opened to sterile field. 14:43:35 Zero performed for pressure channel P1 14:45:46 Patient diabetic? Yes. 14:45:47 If diabetic: On Metformin? No 14:53:43 Physician arrived 14:53:44 --------ALL STOP TIME OUT------ 14:53:45 Final Timeout: patient, procedure, and site verified with staff and physician. All members of the team are in agreement. 14:53:47 Right groin site verified by team. 14:53:51 Sedation plan: IV Moderate Sedation Versed, Fentanyl 14:55:41 Procedure started. 14:55:45 Local anesthetic to right femoral artery with Lidocaine 2% by Star Trevizo MD.INITIAL ACCESS ONLY 14:56:13 A 5 Fr sheath was inserted into the Right Femoral artery 14:56:19 Oxygen 2 l/min NC was administered by Michele Rivera RN; Per physician; 14:56:27 A Cordis 5Fr Pigtail Catheter (MP) was advanced over the wire and used for Procedure. 14:56:28 Heparin Flush Bag (1000units/500ml NS) 2 bags added to field was administered by Michele Rivera RN; used for procedure; 14:56:38 0.9% NaCl 100 ml/hr I.V. was administered by Michele Rivrea RN; Per physician; 14:56:48 Fentanyl 50 mcg I.V. was administered by Michele Rivera RN; for sedation; 14:56:55 Versed 1 mg I.V. was administered by Michele Rivera RN; for sedation; 14:58:18 EF : 55 % 14:58:22 Catheter removed. 14:58:32 A Cordis 5Fr JL 4.0 Catheter (MP) was advanced over the wire and used for Procedure. 14:58:37 LCA angiography performed. 14:58:48 Fentanyl 50 mcg I.V. was administered by Michele Rivera RN; for sedation; 14:58:51 Versed 1 mg I.V. was administered by Michele Rivera RN; for sedation; 14:59:31 Fentanyl 50 mcg I.V. was administered by Michele Rivera RN; for sedation; 14:59:34 Versed 1 mg I.V. was administered by Michele Rivera RN; for sedation; 14:59:39 Catheter removed. 14:59:49 A Cordis 5Fr 3DRC Catheter (MP) was advanced over the wire and used for Procedure. 15:00:03 RCA angiography performed. 15:00:44 Cordis 5Fr Exoseal opened to sterile field. 15:00:50 Catheter removed. 15:01:30 Sheath removed intact; hemostasis achieved with Exoseal to the Right Femoral artery. 15:01:33 Procedure ended.(Physican Out) 15:01:59 Fluoroscopy time 00.70 minutes. 15:02:05 Fluoroscopy dose: 117 mGy 15:02:05 Flurop Dose total: 117 15:02:09 Contrast amount:Isovue 300 58ml. 15:02:12 Sharps counted by scrub and verified by R.N. 15:02:29 Insertion/operative site no bleeding no hematoma. 15:02:35 Post right femoral artery:stable 15:02:38 Post Procedure Pulses reassessed and unchanged 15:02:46 Post procedure rhythm: unchanged. 15:02:49 Estimated blood loss: 10 ml 15:02:51 Post procedure instruction explained to patient.Patient verbalizes understanding. 15:02:56 Procedure and supply charges have been captured, reviewed, submitted and are correct. 15:03:19 Procedure Complication : No complications 15:03:22 Vital chart was stopped 15:03:23 See physician's report for complete and final results. 15:03:25 Report given to Pre/Post Procedure Room. 15:03:28 Patient transfered to Pre/Post Procedure Room with Stretcher. 15:03:30 Procedure ended. 15:03:30 Full Disclosure recording stopped 15:03:33 End room use (Document Last) Device Usage Item Name Manufacture Quantity Catalog Hospital Part Current Minimal Lo t# / Number Charge Number Stock Stock Serial# Code Acist Acist 1 [id number] [id number] 277393 283500 20 Syringe Medical Systems Inc Bag Microtek 1 2002S 076009 72784 890489 5 Decanter Medical Inc. Medline Cardinal 1 [id number] 790305 17497 129005 5 Cath Pack Health Terumo 5Fr Terumo 1 [id number] 066631 481911 410916 [address] Dwayne 1 815185 650878 174578 175627 30 260cm J .035 wire Acist Hand Acist 1 23733 418894 663720 907227 5 Control Medical Systems Inc Acist Acist 1 40578 957887 147014 468168 5 Manifold Medical Systems Inc Diagnostic Cardinal 1 [id number] 656083 14278 684881 30 Reimageity Creation Technologies 5Fr Multipack catheter Tegaderm 4 3M 1 1626W 280024 778457 968134 5 x 4 Cordis 5Fr Cardinal 1 100619 5 Pigtail Health Catheter (MP) Cordis 5Fr Cardinal 1 968434 5 JL 4.0 Health Catheter (MP) Cordis 5Fr Cardinal 1 440595 5 3DRC Health Catheter () Cordis 5Fr Cardinal 1 EX500 193082 512573 337281 10 [facility] Signature Audit [place] Stage Time Signature Unsigned Intra-Procedure 12/18/2016 Sandra Looney 3:06:06 PM RT(R) Signatures Monitor : Sandra Looney Signature : RT Date : Time : [id number] [place] [address]
[2016-12-18] MEDS ORDERED: VENTOLIN HFA18 GM INH (10:26)
[2016-12-18] MEDS ORDERED: GLUCOTROL XL 1010 MG PO (10:28)
[2016-12-18] MEDS ORDERED: GLIPIZIDE10 MG PO (10:28)
[2016-12-18] MEDS ORDERED: LANTUS INSULIN10 ML SC (10:29)
[2016-12-18] MEDS ORDERED: HYDROCODONE-APA1 TAB PO (10:31)
[2016-12-18 10:34] VITALS: BP 117/74; BMI 28.6
[2016-12-18 10:41] LABS: BASOPHILS 0.2 % (0-2); EOSINOPHILS 0.9 % (0-7); HEMATOCRIT 40.1 % (36.0-48.0); IMMATURE GRANULOCYTES 0.5 % (0-5); LYMPHOCYTES 20.4 % (15-50); MCH 27.8 pg (26.0-34.0); MCHC 32.4 g/dL (31.0-37.0); MCV 85.9 fL (80.0-100.0); MEAN PLATELET VOLUME 10.2 fL (7.4-10.4); RBC 4.67 10x6/uL (4.00-5.40); RDW 15.2 % (11.5-14.5); WBC 12.4 10x3/uL (4.8-10.8)
[2016-12-18 10:42] LABS: PLATELET COUNT 304 10x3/uL (130-400)
[2016-12-18 11:00] LABS: ANION GAP 14.5 mmol/L (8-16); CALCIUM 9.5 mg/dL (8.5-10.1); CARBON DIOXIDE 27.2 mmol/L (21.0-32.0); CREATININE - SERUM 1.3 mg/dL (0.6-1.3); POTASSIUM - SERUM 3.7 mmol/L (3.5-5.1)
--- NOTE | 2016-12-18 15:35 | NUR ---
ROOM AIR, NO RESP DISTRESS. RIGHT GROIN 5F EXOSEAL CDI, NO BLEEDIN OR HEMATOMA NOTED. DENIES ANY PAIN OR NAUSEA AT THIS TIME. SANDWICH TRAY AND DRINK GIVEN. FAMILY AT BEDSIDE, CALL LIGHT WITHIN REACH.
--- NOTE | 2016-12-18 16:35 | NUR ---
HOB ELEVATED 30 DEGREES. RIGHT GROIN 5F EXOSEAL CDI, NO BLEEDING NOTED.
--- NOTE | 2016-12-18 16:51 | NUR ---
LEFT PIV D/C'D WITH CATHETER INTACT, BAND AID TO SITE. UP TO BEDSIDE TO GET DRESSED.
--- NOTE | 2016-12-18 17:02 | NUR ---
TO RESTROOM TO VOID.
--- NOTE | 2016-12-18 17:08 | NUR ---
DISCHARGE INSTRUCTIONS GIVEN, VERBALIZED UNDERSTANDING.
--- NOTE | 2016-12-18 17:15 | NUR ---
TAKEN OUT VIA WHEELCHAIR BY CATH HAND PLEATER. LEFT FACILITY WITH FAMILY MEMBER AND ALL PERSONAL BELONGINGS.
--- NOTE | 2017-01-01 16:56 | OP ---
PATIENT NAME: ELISABET BRIGHT MEDICAL RECORD: [id number] :58 LOCATION:D.CAT ADMISSION DATE: SURGEON: MORIAH LIRA MD DATE OF OPERATION: 12/18/2016 DATE OF SERVICE: 12/18/2016 PROCEDURES: 1. Left heart catheterization. 2. Selective coronary angiography. 3. Left ventriculogram. INDICATION: Chest pain compatible with angina, coronary artery disease, previous PTCA stent. PROCEDURE IN DETAIL: After informed consent was obtained and after detailed explanation of risks, benefits as well as alternative therapies, the patient elected to proceed with angiogram and heart catheterization. The right femoral area was prepped and draped in normal sterile fashion. The right femoral artery was cannulated via modified Seldinger technique with placement of 5-[place]izen [place] sheath. All catheters exchanged through this sheath. FINDINGS: Left ventriculogram was performed in standard 30-degree STEIN view, reveals good cardiac wall motion throughout all segments. Overall ejection fraction estimated at 50%. SELECTIVE CORONARY ANGIOGRAPHY: 1. Left main showed no significant angiographic disease. 2. Left anterior descending has previously placed stents, these are widely patent with no significant restenosis. No disease elsewise. 3. Left circumflex has a previously placed stent. This is widely patent with no significant restenosis. No disease elsewise. 4. Right coronary has moderate irregularities, but no flow-limiting stenosis. OVERALL IMPRESSION: Wide patency of all the previously placed stent. No disease elsewise. Continue medical management of the coronary artery disease and cardiac risk factors. TRANSINT:[id number] Voice Confirmation ID: [id number] DOCUMENT ID: [id number] MORIAH LIRA MD at 1656 CC: [id number] DICTATION DATE: 12/18/16 1506 HARNESS CUTTER: 12/18/16 1719 DEP CLI 12/18/16 [facility] [address] [id number]
== END 2016-12-18 17:15 | disposition home or self-care (01) ==
LOC: D.CATH 09:13
PROVIDERS: Internal Medicine Interventional Cardiology
DX: I25.119 Atherosclerotic heart disease of native coronary artery with unspecified angina pectoris (principal); I10 Essential (primary) hypertension; Z01.812 Encounter for preprocedural laboratory examination

== ENCOUNTER → 2018-04-25 10:10 | Outpatient (CLI) | payer MEDICARE, MEDICAID ==
[~2018-04-25 10:10] MED LIST changes: +CYCLOBENZAPRINE10 MG PO; +GLUCOTROL XL 1010 MG PO; +HUMALOG 30100 UNITS/ SC; +HYDROCODONE-APA1 TAB PO; +TENORMIN50 MG PO; +TRESIBA FL100 UNIT/1 SC; +VENTOLIN HFA18 GM INH
--- NOTE | 2018-05-03 11:18 | ST ---
PATIENT:ELISABET BRIGHT MEDICAL RECORD: [id number] SEX: F LOCATION:[facility] ORDER #: ADMISSION DATE: 04/25/18 AGE OF PATIENT: 57 REFERRING PHYSICIAN: INTERPRETING PHYSICIAN: MORIAH LIRA MD DATE OF SERVICE: 04/25/2018 PROCEDURE: Nuclear stress test. INDICATION: Angina and coronary artery disease and hypertension. She was exercised on standard Lexiscan protocol with 32 mCi of sestamibi injected at peak stress, 11 mCi were used previously for rest images. FINDINGS: Gated SPECT reveals a preserved ejection fraction at 66% with good wall motioning and thickening and brightening throughout all segments. SPECT imaging Cardiolite was used as the myocardial perfusion agent. There are reversible changes anteriorly and laterally. This includes basal, mid apical, anterior segments as well as the mid lateral, and basal lateral segments. The degree of reversibility is mild. The amount of myocardium involved is large. OVERALL IMPRESSION: 1. This is an abnormal nuclear stress test with a large area of reversible ischemia anteriorly and laterally. 2. Gated SPECT reveals preserved ejection fraction at 66% in this patient with ongoing symptomatology. The current scan does suggest the presence of hemodynamically significant coronary artery disease. We would proceed with coronary angiography as followup study. TRANSINT:[id number] Voice Confirmation ID: [id number] DOCUMENT ID: [id number] MORIAH LIRA MD at 1118 CC: [id number] DICTATION DATE: 04/26/18 1200 FRYLINE ATTENDANT: 04/27/18 0318 DEP CLI 04/25/18 [id number]
== END | disposition home or self-care (01) ==
LOC: D.HCCARDIO 10:10
DX: I25.119 Atherosclerotic heart disease of native coronary artery with unspecified angina pectoris (principal)

== ENCOUNTER 2018-05-04 08:59 | Outpatient (CLI) | payer MEDICARE, MEDICAID ==
[~2018-05-04] VITALS: Ht 157.5 cm; Wt 73.6 kg
--- NOTE | ~2018-05-04 | HEMODYNAMI ---
PATIENT:ELISABET BRIGHT MEDICAL RECORD: [id number] : 58 LOCATION:D.CAT ADMISSION DATE: 05/04/18 Generatedon:05/04/201811:13 Patient name: ELISABET BRIGHT Patient #: [id number] SSN: : Date of study: 05/04/2018 Page: Of Hemodynamic Procedure Report Patient Data Patient Demographics Procedure consent was obtained First Name: ELISABET Gender: Female Last Name: KAILA : 1960 [facility] Initial: CAMILLA Age: 57 year(s) Patient #: [id number] Race: Additional ID: [id number] Contact details Address: [address] [place] [address] State: [place] City: [place] Zip code: [address] Past Medical History Allergies Allergen Reaction Date Comments Reported Codeine 07/20/2014 Eggs 07/20/2014 Erythromycin 07/20/2014 Tetracycline 07/20/2014 Other allergy 07/20/2014 TYLENOL, DOXYCYLINE, HYDROCODONE, KEFLEX CJ inhibitors 04/15/2016 Codeine 04/15/2016 Other allergy 05/04/2018 ACETAMINOPHEN, CODEINE, DOXYCYCLINE, EGG, ERYTHROCIN, HYRDROCODONE, KEFLEX, LEVAQUIN, LISINOPRIL, TETRACYCLINE Admission Admission Data Admission Date: 05/04/2018 Admission Time: 8:59 Height (in.): 62 BSA: 1.74 (m2) Height (cm.): 157.48 BMI: 29.45 (kg/m2) Weight (lbs.): 161 Weight (kg.): 73.03 Procedure Procedure Types Cath Procedure Diagnostic Procedure LHC LHC w/Coronaries FFR/IVUS Intra-Coronary IVUS Initial Sedation Charges Moderate Sedation up to 30 minutes PCI Procedure Coronary Stent Coronary Stent Initial Coronary Atherectomy Atherectomy w/PTCA Coronary Initial Peripheral Cath Diagnostic Procedure Return Agent Airport Peripheral Procedures Four Vessel Arteriogram Procedure Description Procedure Date Procedure Date: 05/04/2018 Procedure Start Time: 10:43 Procedure End Time: 11:10 Procedure Staff Name Function Star Trevizo MD Performing Physician Elzbieta Goldberg RT Monitor Chely Ferguson RN Nurse Sandra Looney RT Scrub Procedure Data Cath Procedure Fluoroscopy Diagnostic fluoroscopy Total fluoroscopy Time: 7 time: 7 min min Diagnostic fluoroscopy Total fluoroscopy dose: 365 dose: 365 mGy mGy Contrast Material Contrast Material Type Amount (ml) Isovue 300 139 Entry Location Entry Primary Successful Side Size Upsize Upsize Entry Closure Succes sful Closure Location (Fr) 1 (Fr) 2 (Fr) Remarks Device Remarks Femoral Right 5 Fr 6 Fr Exoseal artery Short Estimated blood loss: 10 ml Diagnostic catheters Device Type Used For End Catheter Placement MULTIPACK Pigtail 5 Fr Procedure catheter MULTIPACK JL 4.0 5Fr Procedure catheter MULTIPACK 3DRC 5Fr Procedure catheter Procedure Complications No complications Procedure Medications Medication Administration Route Dosage 0.9% NaCl I.V. 100 ml/hr Oxygen etCO2 Nasal cannula 2 l/min Lidocaine 2% added to field 20 Heparin Flush Bag added to field 2 bags (1000units/500ml NS) Versed I.V. 2 mg Fentanyl I.V. 50 mcg Versed I.V. 2 mg Fentanyl I.V. 50 mcg Versed I.V. 2 mg Heparin Bolus I.V. 4000 units Integrilin (Bolus I.V. 6.8 ml 2mg/ml) Plavix P.O. 600 mg Fentanyl I.V. 50 mcg Hemodynamics Rest BSA: 1.74 (m2) O2 Consumption: Estimated: 162.67 (ml/min) O2 Consumption indexed : Estimated:93.49 (ml/min/m) Heart Rate: 66 (bpm) Snapshots Pre Cath Intra NCS Post Cath Vital Signs Time Heart Resp SPO2 etCO2 NIBP (mmHg) Rhythm Pain Sedation Rate (ipm) (%) (mmHg) Status Level (bpm) 10:04:36 64 15 99 1.5 140/75(122) NSR 0 (11) 10(A) , No pain 10:09:02 64 13 98 2.2 117/65(95) NSR 0 (11) 10(A) , No pain 10:13:20 64 12 98 3 116/57(88) NSR 0 (11) 10(A) , No pain 10:17:40 64 10 95 2.2 108/59(91) NSR 0 (11) 10(A) , No pain 10:22:02 63 11 96 2.2 104/57(82) NSR 0 (11) 10(A) , No pain 10:26:23 64 11 96 4.5 101/55(69) NSR 0 (11) 10(A) , No pain 10:30:41 62 10 97 1.5 100/56(83) NSR 0 (11) 10(A) , No pain 10:34:59 62 14 96 0 102/52(87) NSR 0 (11) 10(A) , No pain 10:39:19 61 11 99 3.7 102/49(70) NSR 0 (11) 10(A) , No pain 10:43:31 65 12 98 2.2 105/63(91) NSR 0 (11) 10(A) , No pain 10:47:53 66 14 98 5.2 106/50(72) NSR 0 (11) 9(A) , No pain 10:52:15 69 14 97 6 104/51(81) NSR 0 (11) 9(A) , No pain 10:56:35 68 12 98 1.5 98/54(81) NSR 0 (11) 9(A) , No pain 11:00:53 70 12 97 1.5 104/53(75) NSR 0 (11) 9(A) , No pain 11:05:11 70 10 94 12.8 110/59(75) NSR 0 (11) 9(A) , No pain 11:09:29 71 15 93 15 109/57(95) NSR 0 (11) 9(A) , No pain Medications Time Medication Route Dose Verified Delivered Reason Notes Effectiveness by by 10:14:16 0.9% NaCl I.V. 100 Star Chely used for ml/hr Joseline Ferguson editorial assistant 10:14:23 Oxygen etCO2 2 Star Chely used for Nasal l/min Joseline Ferguson procedure cannula RN 10:14:31 Lidocaine 2% added 20ml Star Star for local to vial Joseline Trevizo MD anesthetic field 10:14:37 Heparin Flush added 2 Star Star used for Bag to bags Joseline Trevizo MD procedure (1000units/500ml field NS) 10:36:38 Versed I.V. 2 mg Star Chely for sedation Joseline Ferguson RN 10:36:50 Fentanyl I.V. 50 Star Chely for sedation mcg Joseline Ferguson RN 10:41:07 Fentanyl I.V. 50 Star Chely for sedation mcg Joseline Ferguson RN 10:41:15 Versed I.V. 2 mg Star Medinayla for sedation Joseline Ferguson RN 10:45:13 Fentanyl I.V. 50 Star Medinayla for sedation mcg Joseline Ferguson RN 10:45:14 Versed I.V. 2 mg Star Chely for sedation Joseline Ferguson RN 10:50:49 Heparin Bolus I.V. 4000 Star Guerreroa for verif ied units Joseline Ferguson anticoagulation with Dr. ERIN Trevizo 10:51:02 Integrilin I.V. 6.8 Star Guerreroa for waste d (Bolus 2mg/ml) ml Joseline Ferguson anticoagulation 3.2mL RN 10:51:25 Plavix P.O. 600 Star Mo for mg Joseline Ferguson antiplatelet RN therapy Procedure Log Time Note 9:08:26 Patient Height : 62 inches 9:08:35 Patient Weight : 161 lbs 9:11:42 Diagnostic Cath status Elective 9:11:46 Sandra Looney RT(R) sent for patient. Start room use. 9:11:47 Time tracking: Regular hours (M-F 7:00 - 5:00) 9:11:52 Plan of Care:Hemodynamics will remain stable., Cardiac rhythm will remain stable., Comfort level will be maintained., Respiratory function will remain adequate., Patient/ family verbilizes understanding of procedure., Procedure tolerated without complication., Recovers from procedure without complications.. 9:41:18 H&P Date Dictated: 04/18/2018 Within 30 days and on chart., H&P Addendum completed by physician on day of procedure. (MUST COMPLETE FOR ALL OUTPATIENTS). 9:43:45 Patient allergic to Other allergyACETAMINOPHEN, CODEINE, DOXYCYCLINE, EGG, ERYTHROCIN, HYRDROCODONE, KEFLEX, LEVAQUIN, LISINOPRIL, TETRACYCLINE 9:55:59 Patient received from Pre/Post Procedure Room to CCL 3 Alert and oriented. Tansferred to table in Supine position. 9:56:03 Signed procedure consent form obtained from patient. 9:56:05 Warm blankets applied, and armida hugger turned on for patient comfort. 9:56:06 Correct patient and procedure confirmed by team. 9:56:07 ECG and BP/O2 sat monitors applied to patient. 10:03:10 Vital chart was started 10:04:16 Baseline sample Acquired. 10:04:22 Rhythm: sinus rhythm 10:04:23 Full Disclosure recording started 10:04:26 Pre-procedure instructions explained to patient. 10:04:26 Pre-op teaching completed and patient verbalized understanding. 10:04:27 Family in patients room. 10:04:29 Patient NPO since Midnight. 10:04:31 Is patient on blood thinner?No 10:04:33 Patient diabetic? Yes. 10:04:35 If diabetic: On Metformin? No 10:04:37 Patient not . Patient is over age 55. 10:04:41 Previous problem with sedation/anesthesia? No ? 10:04:42 Snore? Yes 10:04:42 Sleep apnea? Yes 10:04:43 Deviated septum? No 10:04:44 Opens mouth fully? Yes 10:04:45 Sticks out tongue? Yes 10:04:46 Airway obstruction? No ? 10:05:23 Dentures? No LOST TEETH 10:05:27 Pre procedure: right dorsailis pedis pulse 1+ Palpable, but thready & weak; easily obliterated 10:05:29 Patient pain scale 0/10 ?. 10:05:39 IV patent on arrival in right antecubital with 0.9% NaCl at KVO. 10:05:58 Lab results completed and on chart. 10:06:00 Right groin area was prepped with chlora-prep and draped in sterile fashion 10:06:01 Alarms reviewed by R. N. 10:06:01 Sharps counted by scrub and verified by R.N. 10:06:15 Procedure type changed to Cath procedure, Diagnostic procedure, LHC, LHC w/Coronaries, FFR/IVUS, Intra-Coronary IVUS Initial, Sedation Charges, Moderate Sedation up to 30 minutes, PCI procedure, Coronary Stent, Coronary Stent Initial, Coronary Atherectomy, Atherectomy w/PTCA Coronary Initial, Peripheral Cath Diagnostic Procedure, Return Agent Airport Peripheral Procedures, Four Vessel Arteriogram 10:06:28 Use device set Femoral Dx 10:06:29 ACIST Syringe (72011) opened to sterile field. 10:06:30 Bag Decanter (2002S) opened to sterile field. 10:06:31 ACIST Hand Control (34385) opened to sterile field. 10:06:31 ACIST Manifold (59332) opened to sterile field. 10:06:32 Tegaderm 4 x 4 (1626W) opened to sterile field. 10:06:33 Medline Cath Pack ([id number]) opened to sterile field. 10:06:33 DIAGNOSTIC WIRE .035 260cm J wire (471111) opened to sterile field. 10:06:35 SHEATH 5FR [place] (NQI124) opened to sterile field. 10:06:36 DIAGNOSTIC Multipack 5Fr catheter set (MY8487) opened to sterile field. 10:14:16 0.9% NaCl 100 ml/hr I.V. was administered by Chely Ferguson RN; used for procedure; 10:14:23 Oxygen 2 l/min etCO2 Nasal cannula was administered by Chely Ferguson RN; used for procedure; 10:14:31 Lidocaine 2% 20ml vial added to field was administered by Star Trevizo MD; for local anesthetic; 10:14:37 Heparin Flush Bag (1000units/500ml NS) 2 bags added to field was administered by Star Trevizo MD; used for procedure; 10:17:10 Zero performed for pressure channel P1 10:17:17 Zero performed for pressure channel P1 10:35:57 --------ALL STOP TIME OUT------ 10:35:58 Final Timeout: patient, procedure, and site verified with staff and physician. All members of the team are in agreement. 10:36:01 Right groin site verified by team. 10:36:07 Fire Safety Assessment: A--An alcohol-based skin anteseptic being used preoperatively., C--Open oxygen or nitrous oxide is being used., D--An ESU, laser, or fiber-optic light is being used. 10:36:10 Physical assessment completed. ASA score P 2 - A patient with mild systemic disease as per Star Trevizo MD. 10:36:13 Sedation plan: IV Moderate Sedation Medication:Versed, Fentanyl 10:36:38 Versed 2 mg I.V. was administered by Chely Marty RN; for sedation; 10:36:50 Fentanyl 50 mcg I.V. was administered by Chely Ferguson RN; for sedation; 10:41:07 Fentanyl 50 mcg I.V. was administered by Chely Ferguson RN; for sedation; 10:41:15 Versed 2 mg I.V. was administered by Chely Ferguson RN; for sedation; 10:43:36 Procedure started. 10:43:57 Local anesthetic to right femoral artery with Lidocaine 2% by Star Trevizo MD.INITIAL ACCESS ONLY 10:44:52 A 5 Fr sheath was inserted into the Right Femoral artery 10:45:04 A MULTIPACK Pigtail 5 Fr catheter was advanced over the wire and used for Procedure. 10:45:13 Fentanyl 50 mcg I.V. was administered by Chely Ferguson RN; for sedation; 10:45:14 Versed 2 mg I.V. was administered by Chely Ferguson RN; for sedation; 10:45:21 LV gram done using STEIN 10:45:24 Injector settings: Ml/sec: 10, Volume: 20, 10:45:47 EF : 55 % 10:45:48 Catheter removed. 10:46:01 A MULTIPACK JL 4.0 5Fr catheter was advanced over the wire and used for Procedure. 10:47:10 LCA angiography performed. 10:47:25 Catheter removed. 10:47:37 A MULTIPACK 3DRC 5Fr catheter was advanced over the wire and used for Procedure. 10:48:16 RCA angiography performed. 10:50:39 Right carotid angiography performed. 10:50:49 Heparin Bolus 4000 units I.V. was administered by Chely Ferguson RN; for anticoagulation; verified with Dr. Trevizo 10:51:01 Left carotid angiography performed. 10:51:02 Integrilin (Bolus 2mg/ml) 6.8 ml I.V. was administered by Chely Ferguson RN; for anticoagulation; wasted 3.2mL 10:51:07 Catheter removed. 10:51:24 SHEATH 6FR [place] (YDD241) opened to sterile field. 10:51:25 Plavix 600 mg P.O. was administered by Chely Ferguson RN; for antiplatelet therapy; 10:51:25 INFLATOR Merit BasixCompak (QE2589) opened to sterile field. 10:51:27 CHOICE PT Extra Support 182cm wire ([id number]) opened to sterile field. 10:51:27 GUIDE 6FR XBLAD 3.5 catheter ([id number]) opened to sterile field. 10:51:28 [place] IVUS Catheter (83586W) opened to sterile field. 10:51:35 Sheath upsized to a 6 Fr Short. 10:52:07 6 Fr XBLAD 3.5 guide catheter was inserted over the wire 10:52:54 CHOICE ES 182 wire advanced. 10:53:31 Wire advanced across lesion. 10:55:00 IVUS catheter advanced over wire. 10:55:02 IVUS pass to LAD lesion performed. 10:55:03 IVUS catheter removed over wire. 10:56:33 LASER ELCA 0.9 Rx atherectomy catheter (397173) opened to sterile field. 10:58:56 Laser pass to mLAD with Fluence of 40 and Rate of 40. 10:59:17 Laser catheter removed. 11:00:31 Laser total pulses delivered: 1495 11:00:32 Laser total treatment time: 0 minutes 48 seconds 11:00:39 Inflate balloon Inflation number: 1 A EUPHORA 2.5 x 15 Balloon ([id number]) was prepped and advanced across the Mid LAD, then inflated to 15 HORTENSIA for 0:10 (min:sec). 11:01:15 Inflation number: 2 The EUPHORA 2.5 x 15 Balloon ([id number]) was reinflated across the Mid LAD, to 11 HORTENSIA for 0:10 (min:sec). 11:01:28 Balloon removed over the wire. 11:01:38 Wire removed. 11:01:38 Guide catheter removed. 11:02:33 GUIDE 6FR HS I catheter (LA6HSI) opened to sterile field. 11:02:56 6 Fr HS1 guide catheter was inserted over the wire 11:03:35 CHOICE ES 182 wire advanced. 11:03:45 Wire advanced across lesion. 11:04:51 Place stent Inflation Number: 1 A JUAN M RX 3.0 x 12 stent ([id number]) was prepped and advanced across the R PDA. The stent was deployed at 9 HORTENSIA for 0:10 (min:sec). 11:05:24 Stent catheter was removed intact over wire. 11:05:25 Wire removed. 11:05:25 Guide catheter removed. 11:05:31 EXOSEAL 6Fr (EX600) opened to sterile field. 11:06:27 Sheath removed intact; hemostasis achieved with Exoseal to the Right Femoral artery. 11:06:29 Procedure ended.(Physican Out) 11:07:40 Fluoroscopy time 07.00 minutes. 11:07:47 Flurop Dose total: 365 11:07:47 Fluoroscopy dose: 365 mGy 11:07:50 Contrast amount:Isovue 300 139ml. 11:07:53 Post-op/insertion site Right Femoral artery dressed using a 4 x 4 and Tegaderm. 11:07:55 Post-procedure physical assessment completed. ASA score P 2 - A patient with mild systemic disease as per Star Trevizo MD. 11:07:57 Post procedure rhythm: sinus rhythm 11:07:59 Estimated blood loss: 10 ml 11:08:00 Post procedure instruction explained to patient.Patient verbalizes understanding. 11:08:01 Patient needs reinforcement of post procedure teaching. 11:10:20 Procedure and supply charges have been captured, reviewed, submitted and are correct. 11:10:23 Procedure Complication : No complications 11:10:24 Vital chart was stopped 11:10:25 See physician's report for complete and final results. 11:10:26 Report given to Pre/Post Procedure Room. 11:10:28 Patient transfered to Pre/Post Procedure Room with Bed. 11:10:30 Procedure ended. 11:10:30 Full Disclosure recording stopped 11:10:35 End room use (Document Last) Intervention Summary Intervention Notes Time ActionType Lesion and Equipment Used Action# Pressure Duration Attributes 11:00:39 Inflate Mid LAD EUPHORA 2.5 x 1 15 00:10 balloon 15 Balloon ([id number]) 11:01:15 Reinflate Mid LAD EUPHORA 2.5 x 2 11 00:10 balloon 15 Balloon ([id number]) 11:04:51 Place stent R PDA JUAN M RX 3.0 x 1 9 00:10 12 stent ([id number]) Device Usage Item Name Manufacture Quantity Catalog Number Hospital Part Current M inimal Lot# / Charge Number Stock Stock Serial# Code ACIST Syringe Acist 1 56778 494494 078735 584516 2 0 (68996) Silk Inc Bag Decanter Microtek 1 578383 10756 374870 5 () Medical Inc. ACIST Hand Acist 1 28563 739040 130240 191740 5 Control Medical (94246) Systems Inc ACIST Manifold Acist 1 43293 445188 908815 537992 5 (13518) Medical Systems Inc Tegaderm 4 x 4 3M 1 1626W 951859 259616 590959 5 (1626W) Medline Cath Medline 1 [id number] 728061 10517 954502 5 Pack ([id number]) DIAGNOSTIC St Dwayne 1 686795 883108 017962 164184 3 0 WIRE .035 260cm J wire (514405) SHEATH 5FR Terumo 1 NMO263 072108 146876 122610 5 [place] (XBT880) DIAGNOSTIC Cardinal 1 FI8248 888430 30380 468867 3 0 Multipack 5Fr Health catheter set (OW4297) MULTIPACK Cardinal 1 857592 5 Pigtail 5 Fr Health catheter MULTIPACK JL Cardinal 1 361686 5 4.0 5Fr Health catheter MULTIPACK 3DRC Cardinal 1 089545 5 5Fr catheter Health SHEATH 6FR Terumo 1 HWV064 156686 826772 619675 4 0 [place] (OGT860) INFLATOR Merit Merit 1 IE0405 282932 327948 484765 1 5 [place] (LB1078) CHOICE PT Kathleen 1 [id number] 248257 931763 035805 5 Extra Support Scientific 182cm wire (3851272Y1) GUIDE 6FR Cardinal 1 [id number] 112760 409970 614367 1 0 XBLAD 3.5 Health catheter (10660668) [place] 1 17495R 212342 121598 341984 8 [place] IVUS Catheter (94347Q) LASER ELCA 0.9 Amy 1 110004 881113 280146 321683 5 Rx atherectomy Healthcare catheter (662273) (459199) EUPHORA 2.5 x Medtronic 1 [id number] 825960 809613 622171 5 [id number] 15 Balloon (FXP2656E) GUIDE 6FR HS I Medtronic 1 LA6HSI 008272 86864 170463 1 catheter (LA6HSI) JUAN M RX 3.0 x Medtronic 1 [id number] 945831 0453136 619563 5 [id number] 12 stent ([id number]) EXOSEAL 6Fr Cardinal 1 EX600 934253 205119 301768 1 0 (EX600) Health Signature Audit Lewis Stage Time Signature Unsigned Intra-Procedure 05/04/2018 Elzbieta Goldberg 11:12:58 AM RT(R) Signatures Monitor : Elzbieta Goldberg Signature : RT Date : Time : [address] [address]
[~2018-05-04 08:59] MED LIST changes: -CYCLOBENZAPRINE10 MG PO; -HUMALOG 30100 UNITS/ SC; -TENORMIN50 MG PO; -TRESIBA FL100 UNIT/1 SC
[2018-05-04] MEDS ORDERED: TENORMIN50 MG PO (09:14)
[2018-05-04] MEDS ORDERED: CYCLOBENZAPRINE10 MG PO (09:15)
[2018-05-04] MEDS ORDERED: HUMALOG 30100 UNITS/ SC (09:17)
[2018-05-04] MEDS ORDERED: TRESIBA FL100 UNIT/1 SC (09:18)
[2018-05-04 09:33] VITALS: BP 132/72; Ht 157.5 cm; Wt 73.6 kg
[2018-05-04 09:40] LABS: BASOPHILS 0.2 % (0-2); EOSINOPHILS 1.5 % (0-7); HEMATOCRIT 42.8 % (36.0-48.0); IMMATURE GRANULOCYTES 0.6 % (0-5); LYMPHOCYTES 20.9 % (15-50); MCH 29.1 pg (26.0-34.0); MCHC 32.7 g/dL (31.0-37.0); MEAN PLATELET VOLUME 10.5 fL (7.4-10.4); MONOCYTES 6.2 % (2-11); NEUTROPHILS 70.6 % (40-80); PLATELET COUNT 314 10x3/uL (130-400); RBC 4.81 10x6/uL (4.00-5.40); RDW 13.8 % (11.5-14.5); WBC 10.3 10x3/uL (4.8-10.8)
[2018-05-04 10:05] LABS: ANION GAP 11.3 mmol/L (8-16); CALCIUM 9.1 mg/dL (8.5-10.1); CARBON DIOXIDE 31.2 mmol/L (21.0-32.0); CREATININE - SERUM 1.3 mg/dL (0.6-1.3); POTASSIUM - SERUM 3.5 mmol/L (3.5-5.1)
[2018-05-04] MEDS ORDERED: PLAVIX75 MG PO (11:19)
--- NOTE | 2018-05-04 11:40 | NUR ---
2L NC, NO RESP DISTRESS. RIGHT GROIN 6F EXOSEAL CDI, NO BLEEDING OR HEMATOMA NOTED. NO C/O PAIN OR NAUSEA. VOIDED 400CC ONTO BEDPAN. VSS. FAMILY AT BEDSIDE, CALL LIGHT WITHIN REACH.
--- NOTE | 2018-05-04 12:10 | NUR ---
SIPPING ON DRINK AND EATING SANDWICH WITH NO C/O NAUSEA. RIGHT GROIN 6F EXOSEAL CDI, NO BLEEDING OR HEMATOMA NOTED. DENIES ANY NEEDS AT THIS TIME. VSS. WILL CONTINUE TO MONITOR.
--- NOTE | 2018-05-04 12:25 | NUR ---
DR. LIRA AT BEDSIDE SPEAKING WITH PT AND FAMILY. RIGHT GROIN 6F EXOSEAL CDI, NO BLEEDING OR HEMATOMA NOTED. NO NEEDS VOICED. VSS. CALL LIGHT WITHIN REACH.
--- NOTE | 2018-05-04 12:55 | NUR ---
VOIDED 350CC ONTO BEDPAN. RIGHT GROIN 6F EXOSEAL CDI, NO BLEEDING OR HEMATOMA NOTED. DENIES ANY NEEDS. VSS. WILL CONTINUE TO MONITOR.
--- NOTE | 2018-05-04 14:10 | NUR ---
HOB ELEVATED 30 DEGREES. RIGHT GROIN 6F EXOSEAL CDI, NO BLEEDING NOTED. NO NEEDS VOICED AT THIS TIME. VSS. WILL CONTINUE TO MONITOR CLOSELY.
--- NOTE | 2018-05-04 14:35 | NUR ---
LEFT PIV D/C'D WITH CATHETER INTACT, BAND AID TO SITE. UP TO BEDSIDE TO GET DRESSED.
--- NOTE | 2018-05-04 14:45 | NUR ---
DISCHARGE INSTRUCTIONS ALONG WITH PLAVIX PRESCRIPTON AND STENT CARD GIVEN, VERBALIZED UNDERSTANDING.
--- NOTE | 2018-05-04 14:57 | NUR ---
TAKEN OUT VIA WHEELCHAIR BY CATH SERGEANT AT ARMS. LEFT FACILITY WITH FAMILY AND ALL PERSONAL BELONGINGS.
--- NOTE | 2018-05-04 15:29 | OP ---
PATIENT NAME: ELISABET BRIGHT MEDICAL RECORD: [id number] :58 LOCATION:D.CAT ADMISSION DATE: SURGEON: MORIAH LIRA MD DATE OF OPERATION: 05/04/2018 PROCEDURES: Four-vessel carotid and vertebral angiography. INDICATION: Syncope. PROCEDURE IN DETAIL: After informed consent was obtained and after a detailed description of the risks, benefits as well as alternative therapies, the patient elected to proceed with angiogram and 4-vessel. The right femoral area had a preexisting sheath from coronary intervention. All catheters exchanged through this sheath. FINDINGS: There was subselection of each subclavian as well as the left carotid. RIGHT SIDE: The common internal and external carotids have mild plaquing, none greater than 10%. No flow-limiting stenosis. Vertebral artery has no significant disease. LEFT SYSTEM: The common internal and external carotids have mild plaquing, none greater than 10%. No flow-limiting stenosis. Vertebral artery has no significant disease. OVERALL IMPRESSION: No significant carotid vascular disease is present. Symptomatology is not secondary to carotid vascular insufficiency. TRANSINT:[id number] Voice Confirmation ID: [id number] DOCUMENT ID: [id number] MORIAH LIRA MD at 1529 CC: [id number] DICTATION DATE: 05/04/18 1145 OUTSIDE SALESMAN: 05/04/18 1219 DEP CLI 05/04/18 [id number] [place] [address]
--- NOTE | 2018-05-05 10:22 | OP ---
PATIENT NAME: ELISABET BRIGHT MEDICAL RECORD: [id number] :58 LOCATION:D.CAT ADMISSION DATE: SURGEON: MORIAH LIRA MD DATE OF OPERATION: 05/04/2018 PROCEDURES: 1. PTCA stent RCA. 2. PTCA, LAD. 3. Laser atherectomy LAD. 4. Left heart catheterization. 5. Selective coronary angiography. 6. Left ventriculogram. 7. Intravascular ultrasound. INDICATION: Angina and coronary artery disease. PROCEDURE IN DETAIL: After informed consent was obtained and after a detailed description of risks, benefits as well as alternative therapies, the patient elected to proceed with angiogram and angioplasty. The right femoral area was prepped and draped in normal sterile fashion. Right femoral artery was cannulated via modified Seldinger technique with placement of 6-Syrian sheath. All catheters exchanged through this sheath. FINDINGS: The left ventriculogram was performed in the standard 30-degree STEIN view, reveals good cardiac wall motion throughout all segments. Overall ejection fraction estimated 60%. SELECTIVE CORONARY ANGIOGRAPHY: 1. Left main is with no significant angiographic disease. 2. Left anterior descending has a previously placed stent. Intravascular ultrasound confirms that there is 80% in-stent restenosis. 3. Left circumflex has moderate irregularities, but no flow-limiting stenosis. 4. Right coronary artery has 70% to 80% stenosis of the right PDA. PTCA STENT OF THE RCA: The stent used was a 3.0 x 12 mm Pap[place]. Result was 0% residual stenosis. LASER ATHERECTOMY OF THE LAD: A 0.9 laser catheter was used. Multiple passes were made at 40/40. This was then ballooned with a 2.5 balloon. Result was 0% residual stenosis. OVERALL IMPRESSION: Successful laser atherectomy, PTCA of the LAD and successful PTCA stent of the RCA, both going from 70% to 80% initial stenosis to 0% residual. TRANSINT:[id number] Voice Confirmation ID: [id number] DOCUMENT ID: [id number] OPERATIVE REPORT [id number] ELISABET BRIGHT MORIAH LIRA MD at 1022 CC: [id number] DICTATION DATE: 05/04/18 1110 TIME ANALYSIS CLERK: 05/04/18 1208 DEP CLI 05/04/18 [place] [address]
== END 2018-05-04 14:57 | disposition home or self-care (01) ==
LOC: D.CATH 08:59
PROVIDERS: ATTEND Internal Medicine Interventional Cardiology
DX: I25.119 Atherosclerotic heart disease of native coronary artery with unspecified angina pectoris (principal); R55 Syncope and collapse; Z01.812 Encounter for preprocedural laboratory examination

== ENCOUNTER 2019-04-05 08:31 | Outpatient (CLI) | payer MEDICARE, MEDICAID ==
[~2019-04-05] VITALS: Ht 157.5 cm; Wt 67.3 kg
--- NOTE | ~2019-04-05 | HEMODYNAMI ---
PATIENT:ELISABET BRIGHT MEDICAL RECORD: [id number] : 58 LOCATION:[facility] ADMISSION DATE: 04/05/19 Generatedon:04/05/201912:52 Patient name: ELISABET BRIGHT Patient #: [id number] SSN: : Date of study: 04/05/2019 Page: Of Hemodynamic Procedure Report Patient Data Patient Demographics Procedure consent was obtained First Name: ELISABET Gender: Female Last Name: KAILA : 1960 [facility] Initial: CAMILLA Age: 58 year(s) Patient #: [id number] Race: Additional ID: [id number] Contact details [address]: [address] [place] [address] State: [place] City: [place] Zip code: [address] Past Medical History Allergies Allergen Reaction Date Comments Reported Codeine 07/20/2014 Eggs 07/20/2014 Erythromycin 07/20/2014 Tetracycline 07/20/2014 Other allergy 07/20/2014 TYLENOL, DOXYCYLINE, HYDROCODONE, KEFLEX CJ inhibitors 04/15/2016 Codeine 04/15/2016 Other allergy 05/04/2018 ACETAMINOPHEN, CODEINE, DOXYCYCLINE, EGG, ERYTHROCIN, HYRDROCODONE, KEFLEX, LEVAQUIN, LISINOPRIL, TETRACYCLINE Admission Admission Data Admission Date: 04/05/2019 Admission Time: 8:31 Height (in.): 62 BSA: 1.68 (m2) Height (cm.): 157.48 BMI: 27.02 (kg/m2) Weight (lbs.): 147.71 Weight (kg.): 67 Lab Results Lab Result Date: 04/05/2019 Lab Result Time: 0:00 Biochemistry Name Units Result Min Max BUN mg/dl 18 --(---*)-- 7 18 Creatinine mg/dl 1.1 --(--*-)-- 0.6 1.3 eGFR ml/min 54 *-(----)-- 90 120 NONAFRICAN CBC Name Units Result Min Max Hemoglobin g/dl 13.7 --(*---)-- 13.5 17.5 Procedure Procedure Types Cath Procedure Diagnostic Procedure [facility] w/Coronaries Sedation Charges Moderate Sedation up to 15 minutes Procedure Description Procedure Date Procedure Date: 04/05/2019 Procedure Start Time: 12:36 Procedure End Time: 12:50 Procedure Staff Name Function Star Trevizo MD Performing Physician Marito Mckenzie RT Monitor Tea To RN Nurse Mariluz Chua RT Scrub Procedure Data Cath Procedure Fluoroscopy Diagnostic fluoroscopy Total fluoroscopy Time: 1 time: 1 min min Diagnostic fluoroscopy Total fluoroscopy dose: dose: 185.72 mGy 185.72 mGy Contrast Material Contrast Material Type Amount (ml) Isovue 370 74 Entry Location Entry Primary Successful Side Size Upsize Upsize Entry Closure Succes sful Closure Location (Fr) 1 (Fr) 2 (Fr) Remarks Device Remarks Femoral Right 5 Fr Exoseal artery Estimated blood loss: 10 ml Diagnostic catheters Device Type Used For End Catheter Placement MULTIPACK Pigtail 5 Fr Procedure catheter MULTIPACK JL 4.0 5Fr Procedure catheter MULTIPACK 3DRC 5Fr Procedure catheter Procedure Complications No complications Procedure Medications Medication Administration Route Dosage 0.9% NaCl I.V. 100 ml/hr Lidocaine 2% added to field 20 Heparin Flush Bag added to field 2 bags (1000units/500ml NS) Oxygen NC 3 l/min Versed I.V. 1 mg Fentanyl I.V. 50 mcg Versed I.V. 1 mg Fentanyl I.V. 50 mcg Fentanyl I.V. 50 mcg Versed I.V. 1 mg Hemodynamics Rest BSA: 1.68 (m2) HGB: 13.7 (g/dl) O2 Consumption: Estimated: 154.12 (ml/min) O2 Co nsumption indexed: Estimated:91.74 (ml/min/m) Heart Rate: 61 (bpm) Snapshots Pre Cath Intra NCS Post Cath Vital Signs Time Heart Resp SPO2 etCO2 NIBP (mmHg) Rhythm Pain Sedation Rate (ipm) (%) (mmHg) Status Level (bpm) 12:08:41 58 20 98 28.5 157/72(129) NSR (Missing) 10(A) 12:13:40 59 8 99 25.5 88/41(55) NSR (Missing) 10(A) 12:18:32 64 12 96 23.2 137/70(89) NSR (Missing) 10(A) 12:22:48 60 12 92 25.5 120/64(90) NSR (Missing) 10(A) 12:26:58 65 10 94 0 118/62(83) NSR (Missing) 10(A) 12:31:08 63 11 98 24.7 118/59(85) NSR (Missing) 10(A) 12:35:16 63 9 94 30 114/68(83) NSR (Missing) 9(A) 12:39:22 68 12 96 0 102/63(76) NSR (Missing) 9(A) 12:43:24 74 10 94 18 112/65(90) NSR (Missing) 9(A) 12:47:29 72 9 80 0 126/65(107) NSR (Missing) 9(A) Medications Time Medication Route Dose Verified Delivered Reason Notes Effe ctiveness by by 12:11:02 0.9% NaCl I.V. 100 Star Tea used for ml/hr Joseline Germanor mock up assembler 12:11:11 Lidocaine 2% added 20ml Star Tea for local to vial Joseline Garnerelor anesthetic field RN 12:11:20 Heparin Flush added 2 Star Tea used for Bag to bags Joseline To procedure (1000units/500ml field RN NS) 12:11:31 Oxygen NC 3 Star Tea for low 02 l/min Joseline Garnerelor sats RN 12:33:01 Versed I.V. 1 mg Star Tea for Joseline DOSS Zuleika sedation RN 12:33:08 Fentanyl I.V. 50 Star Tea for mcg Joseline DOSS Zuleika sedation RN 12:36:35 Versed I.V. 1 mg Star Tea for Joseline DOSS Zuleika sedation RN 12:36:49 Fentanyl I.V. 50 Star Tea for mcg Joseline DOSS Zuleika sedation RN 12:40:08 Versed I.V. 1 mg Star Tea for Joseline DOSS Zuleika sedation RN 12:40:58 Fentanyl I.V. 50 Star Tea for mcg Joseline DOSS Zuleika sedation architectural renderer Log Time Note 10:45:05 Patient Height : 62 inches 10:45:10 Patient Weight : 147.71 lbs 10:46:27 Lab Result : BUN 18 mg/dl 10:46:27 Lab Result : Hemoglobin 13.7 g/dl 10:46:27 Lab Result : eGFR NONAFRICAN 54 ml/min 10:46:27 Lab Result : Creatinine 1.1 mg/dl 10:49:32 Lab results completed and on chart. 10:49:37 Stress Test: no; N/A ? 10:49:40 Risk of Mortality: 0.1 10:49:43 Risk of blood transfusion: 0.4 10:49:45 Risk of SADAF: 0.1 11:45:29 Marito Mckenzie RT(R) sent for patient. Start room use. 11:53:30 Time tracking: Regular hours (M-F 7:00 - 5:00) 11:53:34 Plan of Care:Hemodynamics will remain stable., Cardiac rhythm will remain stable., Comfort level will be maintained., Respiratory function will remain adequate., Patient/ family verbilizes understanding of procedure., Procedure tolerated without complication., Recovers from procedure without complications.. 12:01:37 Patient received from Pre/Post Procedure Room to CCL 3 Alert and oriented. Tansferred to table in Supine position. 12:01:42 Signed procedure consent form obtained from patient. 12:01:43 Warm blankets applied, and armida hugger turned on for patient comfort. 12:01:44 Correct patient and procedure confirmed by team. 12:01:45 ECG and BP/O2 sat monitors applied to patient. 12:07:30 Vital chart was started 12:07:32 Baseline sample Acquired. 12:07:37 Rhythm: sinus rhythm 12:07:38 Full Disclosure recording started 12:07:48 H&P Date Dictated: 04/03/2019 Within 30 days and on chart., H&P Addendum completed by physician on day of procedure. (MUST COMPLETE FOR ALL OUTPATIENTS). 12:07:48 Pre-procedure instructions explained to patient. 12:07:49 Pre-op teaching completed and patient verbalized understanding. 12:07:51 Family in patients room. 12:07:54 Patient NPO since Midnight. 12:07:56 Is the patient allergic to Iodine/contrast media? No. 12:07:57 Is patient on blood thinner?Yes 12:08:00 ACC The patient was administered the following blood thiners within the last 24 hours: ACCPlavix 12:08:02 Patient diabetic? Yes. 12:08:03 If diabetic: On Metformin? No 12:08:06 Previous problem with sedation/anesthesia? No ? 12:08:06 Snore? Yes 12:08:07 Sleep apnea? Yes 12:08:08 Deviated septum? No 12:08:09 Opens mouth fully? Yes 12:08:10 Sticks out tongue? Yes 12:08:11 Airway obstruction? Yes COPD 12:08:25 Dentures? No ? 12:08:28 Pre procedure: right dorsailis pedis pulse 1+ Palpable, but thready & weak; easily obliterated 12:08:30 Patient pain scale 0/10 ?. 12:08:36 Right groin area was prepped with chlora-prep and draped in sterile fashion 12:08:37 Alarms reviewed by R. N. 12:08:38 Sharps counted by scrub and verified by R.N. 12:09:25 Use device set Femoral Dx 12:09:26 ACIST Hand Control (95810) opened to sterile field. 12:09:26 ACIST Manifold (89549) opened to sterile field. 12:09:27 Tegaderm 4 x 4 (1626W) opened to sterile field. 12:09:28 ACIST Syringe (21738) opened to sterile field. 12:09:29 Bag Decanter (2002S) opened to sterile field. 12:09:29 Medline Cath Pack ([id number]) opened to sterile field. 12:09:30 DIAGNOSTIC Multipack 5Fr catheter set (AQ6615) opened to sterile field. 12:09:33 SHEATH 5FR Shelton (VEQ554) opened to sterile field. 12:09:33 EMERALD Guide Wire (703-046) opened to sterile field. 12:10:29 ACC Patient presents with Unstable Angina CCS Anginal Class 4--Inability to carry out any physical activity w/o angina. Angina may occur at rest. 12:11:02 0.9% NaCl 100 ml/hr I.V. was administered by Tea To RN; used for procedure; Verbal order read back and verified. 12:11:11 Lidocaine 2% 20ml vial added to field was administered by Tea Zuleika RN; for local anesthetic; Verbal order read back and verified. 12:11:20 Heparin Flush Bag (1000units/500ml NS) 2 bags added to field was administered by Tea To RN; used for procedure; Verbal order read back and verified. 12:11:31 Oxygen 3 l/min NC was administered by Tea To RN; for low 02 sats; Verbal order read back and verified. 12:11:51 ACCPatient has been prescribed/administered the following anti-anginal medication within the last 2 weeks: Beta Adonis, Calcium Channel Blockers, Long-Acting Nitrates 12:16:50 Physician paged 12::37 Physician arrived 12::38 --------ALL STOP TIME OUT------ :38 Final Timeout: patient, procedure, and site verified with staff and physician. All members of the team are in agreement. 12:31:42 Right groin site verified by team. 12:31:47 Fire Safety Assessment: A--An alcohol-based skin anteseptic being used preoperatively., C--Open oxygen or nitrous oxide is being used., D--An ESU, laser, or fiber-optic light is being used. 12:31:55 Physical assessment completed. ASA score P 2 - A patient with mild systemic disease as per Star Trevizo MD. 12:32:01 3a) 45-59 Moderately reduced kidney function. 12:32:07 Maximum allowable contrast dose (3.7 X eGFR X 0.75)150 ml. 12:32:12 Sedation plan: IV Moderate Sedation Medication:Versed, Fentanyl 12:33:01 Versed 1 mg I.V. was administered by Tea To RN; for sedation; Verbal order read back and verified. 12:33:08 Fentanyl 50 mcg I.V. was administered by Tea To RN; for sedation; Verbal order read back and verified. 12:34:08 Zero performed for pressure channel P1 12:36:35 Versed 1 mg I.V. was administered by Tea To RN; for sedation; Verbal order read back and verified. 12:36:42 Procedure started. 12:36:45 Local anesthetic to right femoral artery with Lidocaine 2% by Star Trevizo MD.INITIAL ACCESS ONLY 12:36:49 Fentanyl 50 mcg I.V. was administered by Tea To RN; for sedation; Verbal order read back and verified. 12:38:58 A 5 Fr sheath was inserted into the Right Femoral artery 12:39:03 A MULTIPACK Pigtail 5 Fr catheter was advanced over the wire and used for Procedure. 12:39:16 LV angiography performed. 12:39:17 LV gram done using STEIN 12:39:22 EF : 60 % 12:39:45 Injector settings: Ml/sec: 5, Volume: 15, 12:40:08 Versed 1 mg I.V. was administered by Tea To RN; for sedation; Verbal order read back and verified. 12:40:10 Catheter exchanged over wire. 12:40:21 A MULTIPACK JL 4.0 5Fr catheter was advanced over the wire and used for Procedure. 12:40:48 LCA angiography performed. 12:40:58 Fentanyl 50 mcg I.V. was administered by Tea To RN; for sedation; Verbal order read back and verified. 12:41:03 Catheter exchanged over wire. 12:41:41 A MULTIPACK 3DRC 5Fr catheter was advanced over the wire and used for Procedure. 12:42:28 RCA angiography performed. 12:42:30 ACCDominant side:Right 12:43:29 Catheter removed. 12:43:31 EXOSEAL 5Fr (EX500) opened to sterile field. 12:43:49 Sheath removed intact; hemostasis achieved with Exoseal to the Right Femoral artery. 12:44:13 Procedure ended.(Physican Out) 12:44:49 Fluoroscopy time 01.00 minutes. 12:44:55 Fluoroscopy dose: 185.72 mGy 12:44:55 Flurop Dose total: 185.72 12:45:00 Dose Area Product 42022.6 mGy/cm. 12:46:30 Contrast amount:Isovue 370 74ml. 12:46:32 Maximum allowable dose exceeded? No. 12:46:33 Sharps counted by scrub and verified by R.N. 12:46:34 Insertion/operative site no bleeding no hematoma. 12:47:59 Post Procedure Pulses reassessed and unchanged 12:48:01 Post-procedure physical assessment completed. ASA score P 2 - A patient with mild systemic disease as per Star Trevizo MD. 12:48:04 Post procedure rhythm: unchanged. 12:48:07 Estimated blood loss: 10 ml 12:48:09 Post procedure instruction explained to patient.Patient verbalizes understanding. 12:48:09 Patient needs reinforcement of post procedure teaching. 12:48:19 Procedure type changed to Cath procedure, Diagnostic procedure, LHC, C w/Coronaries, Sedation Charges, Moderate Sedation up to 15 minutes 12:48:20 Procedure and supply charges have been captured, reviewed, submitted and are correct. 12:48:23 Procedure Complication : No complications 12:48:26 Vital chart was stopped 12:48:28 [facility] Findings: mild to moderate CAD (<70%) 12:48:29 Operative report dictated upon procedure completion. 12:48:29 See physician's report for complete and final results. 12:48:31 Report given to Pre/Post Procedure Room. 12:48:57 Patient transfered to Pre/Post Procedure Room with Stretcher. 12:50:32 Procedure ended. 12:50:32 Full Disclosure recording stopped 12:52:21 End room use (Document Last) Device Usage Item Name Manufacture Quantity Catalog Hospital Part Current Minimal L ot# / Number Charge Number Stock Stock Serial# Code ACIST Hand Acist 1 71442 189646 357528 [id number] 5 Control Medical (30500) Systems Inc ACIST Acist 1 28018 146562 570000 032001 5 Manifold Medical (06665) Systems Inc Tegaderm 4 3M 1 1626W 639461 062987 537614 5 x 4 (1626W) ACIST Acist 1 84892 697734 726668 815749 20 Syringe Medical (45030) Systems Inc Bag Microtek 1 2001S 905742 28951 545920 5 Decanter Medical Inc. () Medline Medline 1 [id number] 954954 01281 624175 5 Cath Pack ([id number]) DIAGNOSTIC Cardinal 1 OR1886 442252 05589 089733 30 Multipack Health 5Fr catheter set (WB8854) SHEATH 5FR Terumo 1 VNH973 564144 539023 427342 5 Shelton (MJP970) EMERALD Cardinal 1 502-455 642511 015951 904723 5 Guide Wire Health (502-251) MULTIPACK Cardinal 1 548825 5 Pigtail 5 Health Fr catheter MULTIPACK Cardinal 1 580641 5 JL 4.0 5Fr Health catheter MULTIPACK Cardinal 1 867254 5 3DRC 5Fr Health catheter EXOSEAL 5Fr Cardinal 1 EX500 536808 739342 624389 10 (EX500) Health Signature Audit [place] Stage Time Signature Unsigned Intra-Procedure 04/05/2019 Marito Mckenzie 12:49:22 PM RT(R) Intra-Procedure 04/05/2019 Tea 12:49:42 PM Zuleika RN Intra-Procedure 04/05/2019 Star Trevizo 12:52:[address] [address]
[~2019-04-05 08:31] MED LIST changes: +CYCLOBENZAPRINE10 MG PO; +HUMALOG 30100 UNITS/ SC; +TENORMIN50 MG PO; +TRESIBA FL100 UNIT/1 SC
[2019-04-05] MEDS ORDERED: FLUTICASONE PRO16 GM (08:55)
[2019-04-05] MEDS ORDERED: CYCLOBENZAPRINE10 MG PO (09:12)
[2019-04-05] MEDS ORDERED: ATIVAN1 MG PO (09:13)
[2019-04-05] MEDS ORDERED: TRAZODONE HCL150 MG PO (09:14)
[2019-04-05] MEDS ORDERED: PROTONIX40 MG PO (09:14)
[2019-04-05 09:20] LABS: BASOPHILS 0.3 % (0-2); EOSINOPHILS 1.1 % (0-7); HEMATOCRIT 41.7 % (36.0-48.0); HEMOGLOBIN 13.7 g/dL (12-16); IMMATURE GRANULOCYTES 0.7 % (0-5); LYMPHOCYTES 26.7 % (15-50); MCH 29.3 pg (26.0-34.0); MCHC 32.9 g/dL (31.0-37.0); MCV 89.1 fL (80.0-100.0); MEAN PLATELET VOLUME 9.9 fL (7.4-10.4); MONOCYTES 6.1 % (2-11); NEUTROPHILS 65.1 % (40-80); PLATELET COUNT 282 10x3/uL (130-400); RBC 4.68 10x6/uL (4.00-5.40); RDW 14.3 % (11.5-14.5); WBC 10.5 10x3/uL (4.8-10.8)
[2019-04-05 09:22] VITALS: BP 148/68; Ht 157.5 cm; Wt 67.3 kg
[2019-04-05 09:25] LABS: ANION GAP 9.9 mmol/L (8-16); CARBON DIOXIDE 31.1 mmol/L (21.0-32.0); CHOL - HDL RATIO 7.9 ratio (2.3-4.1); CREATININE - SERUM 1.1 mg/dL (0.6-1.3); LDL-HDL RATIO 5.7 ratio (1.5-3.5)
--- NOTE | 2019-04-05 13:00 | NUR ---
PT ARRIVED BY STRETCHER. PLACED ON MONITORS. ASSESSMENT COMPLETED. FAMILY AT BEDSIDE. CALL LIGHT WITHIN REACH.
--- NOTE | 2019-04-05 13:15 | NUR ---
RIGHT GRION DRESSING C/D/I. NO S/S OF HEMATOMA NOTED. CALL LIGHT WITHIN REACH. VSS.
--- NOTE | 2019-04-05 13:45 | NUR ---
PT RESTING COMFORTABLY. TOLERATING LIQUIDS. DENIES PAIN AND NAUSEA. FAMILY AT BEDSIDE. VSS. RIGHT GROIN DRESSING C/D/I. NO S/S OF HEMATOMA NOTED.
--- NOTE | 2019-04-05 14:00 | NUR ---
HEAD OF BED INC TO 30 DEGREES. TOLERATED WELL. RIGHT GROIN DRESSING C/D/I. NO S/S OF HEMATOMA NOTED. RIGHT PEDAL PULSE PALPABLE. VSS. CALL LIGHT WITHIN REACH.
--- NOTE | 2019-04-05 14:45 | NUR ---
PIV D/C'D WITH CATH TIP INTACT. TOLERATED WELL. RIGHT GROIN DRESSING C/D/I. NO S/S OF HEMATOMA NOTED. PT INSTRUCTED TO GET UP AND DRESSED AT THIS TIME.
--- NOTE | 2019-04-05 14:50 | NUR ---
DISCUSSED DISCHARGE INSTRUCTIONS WITH PT. SHE VOICED UNDERSTANDING.
--- NOTE | 2019-04-05 15:00 | NUR ---
PT TAKEN OUT TO VEHICLE BY WHEELCHAIR. NO S/S OF DISTRESS NOTED. ALL BELONGINGS AND PAPERWORK IN HAND.
--- NOTE | 2019-04-06 12:54 | OP ---
PATIENT NAME: ELISABET BRIGHT MEDICAL RECORD: [id number] :58 LOCATION:D.CAT ADMISSION DATE: SURGEON: MORIAH LIRA MD DATE OF OPERATION: 04/05/2019 PROCEDURES: 1. Left heart catheterization. 2. Selective coronary angiography. 3. Left ventriculogram. INDICATION: Unstable angina and coronary artery disease. PROCEDURE IN DETAIL: After informed consent was obtained and after a detailed description of risks, benefits as well as alternative therapies, the patient elected to proceed with angiogram and heart catheterization. The right femoral area was prepped and draped in normal sterile fashion. Right femoral artery was cannulated via modified Seldinger technique with placement of 5-Kiswahili sheath. All catheters exchanged through this sheath. FINDINGS: Left ventriculogram was performed in standard 30-degree STEIN view, reveals good cardiac wall motion throughout all segments. Overall ejection fraction estimated at 60%. SELECTIVE CORONARY ANGIOGRAPHY: 1. Left main is with no significant angiographic disease. 2. Left anterior descending has previously placed stent in the LAD and LAD diagonal, both of these are widely patent with no significant restenosis. No disease elsewise at the LAD or its branches. 3. Left circumflex has a previously placed stent that is widely patent with no significant restenosis. No disease elsewise of the circumflex or its branches. 4. The right coronary has previously placed stent. This is widely patent with no significant restenosis. No disease elsewise at the RCA or its branches. OVERALL IMPRESSION: Wide patency of all the previously placed stents, no new disease is present. Continue medical management of the coronary artery disease and cardiac risk factors. TRANSINT:[id number] Voice Confirmation ID: [id number] DOCUMENT ID: [id number] MORIAH LIRA MD at 1254 CC: [id number] DICTATION DATE: 04/05/19 1246 ADULT DAYCARE COORDINATOR: 04/05/19 1625 DEP CLI 04/05/19 [address] [id number] [place] [address]
== END 2019-04-05 15:00 | disposition home or self-care (01) ==
LOC: D.CATH 08:31
PROVIDERS: ATTEND Internal Medicine Interventional Cardiology
DX: I25.110 Atherosclerotic heart disease of native coronary artery with unstable angina pectoris (principal); E11.9 Type 2 diabetes mellitus without complications; E78.5 Hyperlipidemia, unspecified; I10 Essential (primary) hypertension; I42.9 Cardiomyopathy, unspecified; Z79.84 Long term (current) use of oral hypoglycemic drugs